=== PATIENT | male | born 1960 | race Caucasian/White ===

== ENCOUNTER 2017-09-12 19:49 | Inpatient (IN) | payer MEDICAID ==
[2017-09-13] MEDS: HYDROmorphONE 0.5 MG/0.5 ML SYG IV (00:01)
[2017-09-13] MEDS: LACTATED RINGER'S 1,000 ML IV ×2 (00:01→01:37)
[2017-09-13 00:02] LABS: ADD MAN DIFF? NO
[2017-09-13 00:04] LABS: WHITE BLOOD COUNT 13.1 10^3/ul (4.8-10.8)
[2017-09-13 00:04] LABS: BASOPHIL # 0.1 10^3/ul (0.0-0.1); BASOPHILS % 0.9 % (0.0-2.0); EOSINOPHILS % 0.1 % (0.0-7.0); HEMATOCRIT 46.1 % (42.0-52.0); HEMOGLOBIN 16.5 g/dl (14.0-18.0); LYMPHOCYTES # 2.5 10^3/ul (0.8-2.9); LYMPHOCYTES % 19.4 % (15.0-51.0); MEAN CORPUSCULAR HEMOGLOBIN 33.8 pg (29.0-33.0); MEAN CORPUSCULAR HGB CONC 35.8 g/dl (32.0-37.0); MEAN CORPUSCULAR VOLUME 94.5 fl (82.0-101.0); MEAN PLATELET VOLUME 9.8 fl (7.4-10.4); MONOCYTE # 1.2 10^3/ul (0.3-0.9); NEUTROPHIL # 9.1 10^3/ul (1.6-7.5); NUCLEATED RED BLOOD CELLS% 0.2 /100WBC (0.0-0.0); PLATELET COUNT 128 10^3/UL (140-415); RED BLOOD COUNT 4.88 10^6/ul (4.70-6.10); RED CELL DISTRIBUTION WIDTH 13.4 % (11.5-14.5)
[2017-09-13 00:26] LABS: ALANINE AMINOTRANSFERASE 54 IU/L (13-69); ALBUMIN/GLOBULIN RATIO 1.62; ALKALINE PHOSPHATASE 222 IU/L (42-121); ANION GAP 47 (8-16); ASPARTATE AMINO TRANSFERASE 71 IU/L (15-46); BILIRUBIN,INDIRECT 0.3 mg/dl (0-1.1); BILIRUBIN,TOTAL 0.3 mg/dl (0.2-1.3); BLOOD UREA NITROGEN 12 mg/dl (7-20); CALCIUM 10.3 mg/dl (8.4-10.2); CHLORIDE 93 mmol/L (97-110); CREATININE 0.71 mg/dl (0.61-1.24); POTASSIUM 4.1 mmol/L (3.5-5.1); SODIUM 143 mmol/L (135-144); TOTAL PROTEIN 9.7 g/dl (6.1-8.1)
[2017-09-13 00:29] LABS: CARBON DIOXIDE 7 mmol/L (21-31); GLUCOSE 445 mg/dl (70-220)
[2017-09-13 00:39] LABS: LIPASE 3278 U/L (23-300)
[2017-09-13 00:58] LABS: MODE ROOM AIR; MetHgb Venous 0.4 %; Sample Type Blood venous; Site VENOUS LINE; Venous COHb 0.4 %; Venous Fraction OxyHgb 85.6 %; Venous Oxygen Sat 86.3 mmHG (55.0-75.0); Venous Total Hemglobin 15.2 g/dl
[2017-09-13] MEDS: INSULIN HUMAN REGULAR 100 UNIT in SOD CHLORIDE 0.9% 99 ML IV (01:34)
[2017-09-13] MEDS: POTASSIUM CHLORIDE 40 MEQ in SOD CHLORIDE 0.9% 250 ML IV (01:36)
[2017-09-13] MEDS: INSULIN REGULAR 10 ML INJ IV (01:36)
[2017-09-13 02:17] LABS: ADD UMIC YES; UR ASCORBIC ACID NEGATIVE (NEGATIVE); UR BILIRUBIN (Dip) NEGATIVE (NEGATIVE); UR BLOOD (Dip) 2+ mg/dL (NEGATIVE); UR CLARITY SLIGHTLY CLOUDY (CLEAR); UR COLOR YELLOW (YELLOW); UR GLUCOSE (Dip) 3+ mg/dL (NEGATIVE); UR KETONES (Dip) 2+ mg/dL (NEGATIVE); UR LEUKOCYTE ESTERASE (Dip) NEGATIVE Leu/ul (NEGATIVE); UR NITRITE (Dip) NEGATIVE (NEGATIVE); UR RBC 1 /HPF (0-5); UR SPECIFIC GRAVITY (Dip) 1.026 (1.003-1.030); UR TOTAL PROTEIN (Dip) 2+ mg/dl (NEGATIVE); UR UROBILINOGEN (Dip) NEGATIVE (NEGATIVE); UR WBC 4 /HPF (0-5)
[2017-09-13 02:48] LABS: BLOOD UREA NITROGEN 13 mg/dl (7-20); CALCIUM 9.4 mg/dl (8.4-10.2); CHLORIDE 100 mmol/L (97-110); CREATININE 0.69 mg/dl (0.61-1.24); GLUCOSE 344 mg/dl (70-220); SODIUM 141 mmol/L (135-144)
[2017-09-13 02:49] LABS: LACTIC ACID 1.2 mmol/L (0.5-2.0); PHOSPHORUS 2.7 mg/dl (2.5-4.9)
[2017-09-13 02:49] LABS: MAGNESIUM 1.9 mg/dl (1.7-2.5)
[2017-09-13 03:00] LABS: ANION GAP 39 (8-16); CARBON DIOXIDE < 5 mmol/L (21-31); POTASSIUM 2.9 mmol/L (3.5-5.1)
[2017-09-13 03:41] LABS: ACETONE POSITIVE 1:1 (NEGATIVE)
[2017-09-13 06:19] LABS: ANION GAP 35 (8-16); BLOOD UREA NITROGEN 13 mg/dl (7-20); CALCIUM 8.9 mg/dl (8.4-10.2); CHLORIDE 102 mmol/L (97-110); GLUCOSE 259 mg/dl (70-220); POTASSIUM 4.7 mmol/L (3.5-5.1); SODIUM 139 mmol/L (135-144)
[2017-09-13 06:30] LABS: CARBON DIOXIDE 7 mmol/L (21-31)
[2017-09-13] MEDS: D5W-0.45 NACL + KCL 40 MEQ 1,000 ML IV ×7 (07:15→23:05)
[2017-09-13 11:14] LABS: ANION GAP 28 (8-16); BLOOD UREA NITROGEN 11 mg/dl (7-20); CALCIUM 8.8 mg/dl (8.4-10.2); CARBON DIOXIDE 13 mmol/L (21-31); CHLORIDE 103 mmol/L (97-110); GLUCOSE 215 mg/dl (70-220); POTASSIUM 3.9 mmol/L (3.5-5.1); SODIUM 140 mmol/L (135-144)
[2017-09-13] MEDS: SODIUM CHLORIDE 23.4% 77 MEQ, POTASSIUM CHLORIDE 40 MEQ in DEXTROSE 10% 1,000 ML IV (13:39)
[2017-09-13 14:01] LABS: ANION GAP 19 (8-16); BLOOD UREA NITROGEN 11 mg/dl (7-20); CALCIUM 8.7 mg/dl (8.4-10.2); CARBON DIOXIDE 17 mmol/L (21-31); CHLORIDE 104 mmol/L (97-110); GLUCOSE 154 mg/dl (70-220); POTASSIUM 3.3 mmol/L (3.5-5.1); SODIUM 137 mmol/L (135-144)
[2017-09-13] MEDS ORDERED: GLUCOSE GEL 15 GRAM TUBE PO ×2 (18:00)
[2017-09-13] MEDS ORDERED: DEXTROSE 50% 50 ML SYRINGE IV ×2 (18:00)
[2017-09-13] MEDS: INSULIN ASPART [NOVOLOG] 3 ML PEN SC ×2 (18:00→22:04)
[2017-09-13] MEDS ORDERED: GLUCOSE GEL 15 GRAM TUBE BUCCAL (18:00)
[2017-09-13] MEDS ORDERED: GLUCAGON 1 MG INJ IM (18:00)
[2017-09-13 18:15] LABS: ANION GAP 16 (8-16); BLOOD UREA NITROGEN 11 mg/dl (7-20); CALCIUM 8.5 mg/dl (8.4-10.2); CARBON DIOXIDE 19 mmol/L (21-31); CHLORIDE 105 mmol/L (97-110); CREATININE 0.46 mg/dl (0.61-1.24); GLUCOSE 189 mg/dl (70-220); POTASSIUM 3.5 mmol/L (3.5-5.1); SODIUM 136 mmol/L (135-144)
[2017-09-14] MEDS: ACCU-CHEK XX ×12 (02:26→17:18)
[2017-09-14] MEDS: D5W-0.45 NACL + KCL 40 MEQ 1,000 ML IV (03:30)
[2017-09-14 05:17] LABS: ADD MAN DIFF? NO
[2017-09-14 05:23] LABS: ABNORMAL IP MESSAGE 1; BASOPHILS % 0.3 % (0.0-2.0); EOSINOPHILS # 0.1 10^3/ul (0.0-0.5); EOSINOPHILS % 0.7 % (0.0-7.0); HEMATOCRIT 33.8 % (42.0-52.0); HEMOGLOBIN 12.4 g/dl (14.0-18.0); LYMPHOCYTES # 1.5 10^3/ul (0.8-2.9); LYMPHOCYTES % 14.1 % (15.0-51.0); MEAN CORPUSCULAR HEMOGLOBIN 34.2 pg (29.0-33.0); MEAN CORPUSCULAR HGB CONC 36.7 g/dl (32.0-37.0); MEAN CORPUSCULAR VOLUME 93.1 fl (82.0-101.0); MEAN PLATELET VOLUME 10.3 fl (7.4-10.4); MONOCYTE # 0.9 10^3/ul (0.3-0.9); NEUTROPHIL # 7.9 10^3/ul (1.6-7.5); NEUTROPHILS % 75.6 % (39.0-77.0); PLATELET COUNT 71 10^3/UL (140-415); POSITIVE DIFF @See below; RED BLOOD COUNT 3.63 10^6/ul (4.70-6.10)
[2017-09-14 05:23] LABS: WHITE BLOOD COUNT 10.5 10^3/ul (4.8-10.8)
[2017-09-14 05:45] LABS: ANION GAP 20 (8-16); BLOOD UREA NITROGEN 9 mg/dl (7-20); CALCIUM 8.5 mg/dl (8.4-10.2); CARBON DIOXIDE 18 mmol/L (21-31); CHLORIDE 101 mmol/L (97-110); CREATININE 0.51 mg/dl (0.61-1.24); MAGNESIUM 1.6 mg/dl (1.7-2.5); PHOSPHORUS 1.3 mg/dl (2.5-4.9); POTASSIUM 3.8 mmol/L (3.5-5.1); SODIUM 135 mmol/L (135-144)
[2017-09-14 06:09] LABS: GLUCOSE 441 mg/dl (70-220)
[2017-09-14] MEDS: Discontinue all previous diabetes medication and insulin orders. XX (07:00)
[2017-09-14] MEDS ORDERED: Treatment of Hypoglycemia: XX (07:00)
[2017-09-14] MEDS ORDERED: DEXTROSE 50% 50 ML SYRINGE IV ×3 (07:00→14:30)
[2017-09-14] MEDS ORDERED: LORAZEPAM 2 MG INJ IV (07:00)
[2017-09-14] MEDS ORDERED: ACCU-CHEK XX (07:30)
[2017-09-14] MEDS: SOD CHLORIDE 0.9% 1,000 ML IV ×3 (07:50→22:06)
[2017-09-14] MEDS: MAGNESIUM SULFATE 2 GM/50 ML 50 ML IVPB (07:50)
[2017-09-14] MEDS: INSULIN HUMAN REGULAR 100 UNIT in SOD CHLORIDE 0.9% 99 ML IV (08:10)
[2017-09-14] MEDS: ENOXAPARIN 40 MG/0.4 ML SYG SC (09:21)
[2017-09-14] MEDS: POTASSIUM PHOSPHATE 15 MEQ in SOD CHLORIDE 0.9% 250 ML IVPB (09:45)
[2017-09-14 10:03] LABS: AADO2 Arterial 15.9 mmHg (7.0-24.0); Allen Test ACCEPTAB; Arterial Base Excess -2.2 mmol/L (-3.0-3); Arterial Blood Gas Oxygen Sat 97.7 mmHG (95.0-98.0); Arterial COHb 0.8 % (0.0-3.0); Arterial Fraction of Oxyhgb 96.7 % (93.0-99.0); Arterial HCO3 21.3 mmol/L (22.0-26.0); Arterial MetHb 0.2 % (0.0-1.5); Arterial pCO2 33.1 mmhg (35-45); MODE ROOM AIR; Site Right Radial
[2017-09-14] MEDS: MULTIVITAMINS 10 ML, THIAMINE 100 MG, FOLIC ACID 1 MG in SOD CHLORIDE 0.9% 1,000 ML IVPB (10:45)
[2017-09-14 13:47] LABS: ANION GAP 14 (8-16); BLOOD UREA NITROGEN 7 mg/dl (7-20); CALCIUM 8.3 mg/dl (8.4-10.2); CARBON DIOXIDE 22 mmol/L (21-31); CHLORIDE 105 mmol/L (97-110); CREATININE 0.45 mg/dl (0.61-1.24); GLUCOSE 152 mg/dl (70-220); PHOSPHORUS 1.7 mg/dl (2.5-4.9); SODIUM 138 mmol/L (135-144)
[2017-09-14 13:51] LABS: POTASSIUM 2.9 mmol/L (3.5-5.1)
[2017-09-14] MEDS ORDERED: GLUCOSE GEL 15 GRAM TUBE BUCCAL (14:30)
[2017-09-14] MEDS ORDERED: GLUCOSE GEL 15 GRAM TUBE PO ×2 (14:30)
[2017-09-14] MEDS ORDERED: GLUCAGON 1 MG INJ IM (14:30)
[2017-09-14] MEDS: POTASSIUM CHLORIDE 100 ML IVPB ×2 (15:38→17:18)
[2017-09-14] MEDS: INSULIN GLARGINE [LANtus] 3 ML PEN SC ×2 (15:47→20:34)
[2017-09-14] MEDS: DEXTROSE 50% 50 ML SYRINGE IV (16:24)
[2017-09-14] MEDS: INSULIN ASPART [NOVOLOG] 3 ML PEN SC ×2 (17:35→20:36)
[2017-09-14 19:55] LABS: ANION GAP 14 (8-16); BLOOD UREA NITROGEN 6 mg/dl (7-20); CALCIUM 8.2 mg/dl (8.4-10.2); CARBON DIOXIDE 23 mmol/L (21-31); CHLORIDE 104 mmol/L (97-110); GLUCOSE 207 mg/dl (70-220); MAGNESIUM 1.8 mg/dl (1.7-2.5); PHOSPHORUS 1.8 mg/dl (2.5-4.9); POTASSIUM 3.3 mmol/L (3.5-5.1); SODIUM 138 mmol/L (135-144)
[2017-09-15] MEDS ORDERED: ACCU-CHEK XX (02:00)
[2017-09-15] MEDS: ACCU-CHEK XX (02:14)
[2017-09-15 08:32] LABS: ADD MAN DIFF? NO
[2017-09-15 08:50] LABS: WHITE BLOOD COUNT 5.6 10^3/ul (4.8-10.8)
[2017-09-15 08:50] LABS: ABNORMAL IP MESSAGE 1; BASOPHILS % 0.5 % (0.0-2.0); EOSINOPHILS # 0.1 10^3/ul (0.0-0.5); EOSINOPHILS % 1.4 % (0.0-7.0); HEMATOCRIT 35.3 % (42.0-52.0); HEMOGLOBIN 12.9 g/dl (14.0-18.0); LYMPHOCYTES # 1.6 10^3/ul (0.8-2.9); LYMPHOCYTES % 28.1 % (15.0-51.0); MEAN CORPUSCULAR HEMOGLOBIN 33.9 pg (29.0-33.0); MEAN CORPUSCULAR HGB CONC 36.5 g/dl (32.0-37.0); MEAN CORPUSCULAR VOLUME 92.7 fl (82.0-101.0); MEAN PLATELET VOLUME 10.5 fl (7.4-10.4); MONOCYTE # 0.7 10^3/ul (0.3-0.9); MONOCYTES % 12.9 % (0.0-11.0); NEUTROPHIL # 3.2 10^3/ul (1.6-7.5); NEUTROPHILS % 56.9 % (39.0-77.0); PLATELET COUNT 74 10^3/UL (140-415); POSITIVE DIFF @See below; RED BLOOD COUNT 3.81 10^6/ul (4.70-6.10); RED CELL DISTRIBUTION WIDTH 12.8 % (11.5-14.5)
[2017-09-15] MEDS: INSULIN ASPART [NOVOLOG] 3 ML PEN SC ×5 (09:08→20:21)
[2017-09-15] MEDS: ENOXAPARIN 40 MG/0.4 ML SYG SC (09:08)
[2017-09-15 09:12] LABS: ANION GAP 13 (8-16); BLOOD UREA NITROGEN 4 mg/dl (7-20); CALCIUM 7.9 mg/dl (8.4-10.2); CARBON DIOXIDE 25 mmol/L (21-31); CHLORIDE 103 mmol/L (97-110); CREATININE 0.39 mg/dl (0.61-1.24); GLUCOSE 153 mg/dl (70-220); MAGNESIUM 1.7 mg/dl (1.7-2.5); PHOSPHORUS 1.8 mg/dl (2.5-4.9); SODIUM 138 mmol/L (135-144)
[2017-09-15 09:14] LABS: POTASSIUM 2.8 mmol/L (3.5-5.1)
[2017-09-15] MEDS ORDERED: POTASSIUM CHLORIDE (SR) 20 MEQ TAB PO (10:06)
[2017-09-15] MEDS: SOD CHLORIDE 0.9% 1,000 ML IV ×2 (10:10→14:52)
[2017-09-15 10:31] LABS: ALANINE AMINOTRANSFERASE 53 IU/L (13-69); ALBUMIN 3.7 g/dl (3.3-4.9); ALBUMIN/GLOBULIN RATIO 1.27; ALKALINE PHOSPHATASE 155 IU/L (42-121); AMYLASE 98 U/L (11-123); ANION GAP 16 (8-16); ASPARTATE AMINO TRANSFERASE 101 IU/L (15-46); BLOOD UREA NITROGEN 4 mg/dl (7-20); CALCIUM 8.5 mg/dl (8.4-10.2); CARBON DIOXIDE 26 mmol/L (21-31); CHLORIDE 99 mmol/L (97-110); CREATININE 0.42 mg/dl (0.61-1.24); GLUCOSE 191 mg/dl (70-220); LIPASE 447 U/L (23-300); SODIUM 138 mmol/L (135-144); TOTAL PROTEIN 6.6 g/dl (6.1-8.1)
[2017-09-15] MEDS: POTASSIUM CHLORIDE (SR) 20 MEQ TAB PO (10:48)
[2017-09-15] MEDS: MAGNESIUM SULFATE 2 GM/50 ML 50 ML IVPB (10:48)
[2017-09-15] MEDS: MULTIVITAMINS 10 ML, THIAMINE 100 MG, FOLIC ACID 1 MG in SOD CHLORIDE 0.9% 1,000 ML IVPB (10:54)
[2017-09-15] MEDS: POTASSIUM PHOSPHATE 20 MEQ in SOD CHLORIDE 0.9% 250 ML IVPB (17:47)
[2017-09-15] MEDS ORDERED: INSULIN GLARGINE [LANtus] 3 ML PEN SC ×2 (20:00)
[2017-09-15] MEDS: INSULIN GLARGINE [LANtus] 3 ML PEN SC (20:21)
[2017-09-16] MEDS: ACCU-CHEK XX (01:42)
[2017-09-16] MEDS: SOD CHLORIDE 0.9% 1,000 ML IV ×2 (04:12→04:20)
[2017-09-16] MEDS: INSULIN ASPART [NOVOLOG] 3 ML PEN SC ×6 (09:13→18:09)
[2017-09-16] MEDS: MULTIVITAMINS 10 ML, THIAMINE 100 MG, FOLIC ACID 1 MG in SOD CHLORIDE 0.9% 1,000 ML IVPB (09:38)
[2017-09-16] MEDS: ENOXAPARIN 40 MG/0.4 ML SYG SC (09:39)
[2017-09-16 12:08] LABS: ADD MAN DIFF? NO
[2017-09-16 12:11] LABS: WHITE BLOOD COUNT 5.4 10^3/ul (4.8-10.8)
[2017-09-16 12:11] LABS: ABNORMAL IP MESSAGE 1; BASOPHILS % 0.7 % (0.0-2.0); EOSINOPHILS % 0.6 % (0.0-7.0); HEMATOCRIT 34.8 % (42.0-52.0); HEMOGLOBIN 12.7 g/dl (14.0-18.0); LYMPHOCYTES # 1.8 10^3/ul (0.8-2.9); LYMPHOCYTES % 32.8 % (15.0-51.0); MEAN CORPUSCULAR HEMOGLOBIN 33.7 pg (29.0-33.0); MEAN CORPUSCULAR HGB CONC 36.5 g/dl (32.0-37.0); MEAN CORPUSCULAR VOLUME 92.3 fl (82.0-101.0); MEAN PLATELET VOLUME 10.5 fl (7.4-10.4); MONOCYTES % 17.7 % (0.0-11.0); NEUTROPHIL # 2.6 10^3/ul (1.6-7.5); NEUTROPHILS % 47.8 % (39.0-77.0); POSITIVE DIFF @See below; RED BLOOD COUNT 3.77 10^6/ul (4.70-6.10); RED CELL DISTRIBUTION WIDTH 13.2 % (11.5-14.5)
[2017-09-16 12:29] LABS: PLATELET COUNT 98 10^3/UL (140-415)
[2017-09-16 12:46] LABS: ANION GAP 15 (8-16); BLOOD UREA NITROGEN 4 mg/dl (7-20); CALCIUM 8.4 mg/dl (8.4-10.2); CARBON DIOXIDE 27 mmol/L (21-31); CHLORIDE 99 mmol/L (97-110); GLUCOSE 129 mg/dl (70-220); MAGNESIUM 1.8 mg/dl (1.7-2.5); PHOSPHORUS 2.1 mg/dl (2.5-4.9); SODIUM 138 mmol/L (135-144)
[2017-09-16] MEDS ORDERED: metFORMIN 500 MG TAB PO (19:05)
[2017-09-16] MEDS ORDERED: INSULIN GLARGINE [LANtus] 3 ML PEN SC (20:00)
== END 2017-09-16 18:48 | disposition home health service (06) | DRG 438 ==
LOC: E/R 19:49 → MS4 09-14 23:53 → E/R 09-13 12:51 → ICU 09-13 06:45
PROVIDERS: Internal Medicine
DX: K85.20 Alcohol induced acute pancreatitis without necrosis or infection (principal); E11.10 Type 2 diabetes mellitus with ketoacidosis without coma; K86.0 Alcohol-induced chronic pancreatitis; E87.6 Hypokalemia; D69.6 Thrombocytopenia, unspecified; E87.8 Other disorders of electrolyte and fluid balance, not elsewhere classified
CPT/HCPCS: 36415; 36600; 71045; 74176; 80048; 80053; 81001; 82010; 82150; 82803; 82962; 83036; 83605; 83690; 83735; 84100; 85025; 87081; 93005; 96365; 96366; 96375; 96376; 99291-25

== ENCOUNTER 2018-01-18 11:16 | Emergency (ER) | payer MEDICAID ==
[2018-01-18] MEDS: SOD CHLORIDE 0.9% IV (11:53)
[2018-01-18 11:57] LABS: ADD MAN DIFF? NO
[2018-01-18 11:59] LABS: BASOPHILS % 0.7 % (0.0-2.0); EOSINOPHILS # 0.1 10^3/ul (0.0-0.5); HEMATOCRIT 37.9 % (42.0-52.0); HEMOGLOBIN 13.3 g/dl (14.0-18.0); LYMPHOCYTES # 1.7 10^3/ul (0.8-2.9); LYMPHOCYTES % 29.2 % (15.0-51.0); MEAN CORPUSCULAR HEMOGLOBIN 33.7 pg (29.0-33.0); MEAN CORPUSCULAR HGB CONC 35.1 g/dl (32.0-37.0); MEAN CORPUSCULAR VOLUME 95.9 fl (82.0-101.0); MEAN PLATELET VOLUME 9.9 fl (7.4-10.4); MONOCYTE # 0.4 10^3/ul (0.3-0.9); MONOCYTES % 7.1 % (0.0-11.0); NEUTROPHIL # 3.6 10^3/ul (1.6-7.5); NEUTROPHILS % 61.8 % (39.0-77.0); PLATELET COUNT 109 10^3/UL (140-415); RED BLOOD COUNT 3.95 10^6/ul (4.70-6.10); RED CELL DISTRIBUTION WIDTH 12.8 % (11.5-14.5)
[2018-01-18 11:59] LABS: WHITE BLOOD COUNT 5.8 10^3/ul (4.8-10.8)
[2018-01-18] MEDS: FAMOTIDINE 20 MG INJ IV (12:10)
[2018-01-18 12:17] LABS: ALANINE AMINOTRANSFERASE 68 IU/L (13-69); ALBUMIN 4.2 g/dl (3.3-4.9); ALBUMIN/GLOBULIN RATIO 1.44; ALKALINE PHOSPHATASE 245 IU/L (42-121); ANION GAP 18 (8-16); ASPARTATE AMINO TRANSFERASE 112 IU/L (15-46); BILIRUBIN,INDIRECT 1.3 mg/dl (0-1.1); BILIRUBIN,TOTAL 1.3 mg/dl (0.2-1.3); BLOOD UREA NITROGEN 11 mg/dl (7-20); CALCIUM 9.3 mg/dl (8.4-10.2); CARBON DIOXIDE 26 mmol/L (21-31); CHLORIDE 93 mmol/L (97-110); CREATININE 0.53 mg/dl (0.61-1.24); LIPASE 93 U/L (23-300); MAGNESIUM 1.5 mg/dl (1.7-2.5); PHOSPHORUS 3.4 mg/dl (2.5-4.9); POTASSIUM 4.4 mmol/L (3.5-5.1); SODIUM 133 mmol/L (135-144); TOTAL PROTEIN 7.1 g/dl (6.1-8.1)
[2018-01-18 12:18] LABS: GLUCOSE 465 mg/dl (70-220)
[2018-01-18 12:19] LABS: MODE ROOM AIR; MetHgb Venous 0.3 %; Sample Type Blood venous; Site VENOUS LINE; Venous COHb 0.9 %; Venous Fraction OxyHgb 77.5 %; Venous Oxygen Sat 78.4 mmHG (55.0-75.0); Venous Total Hemglobin 13.9 g/dl
[2018-01-18 12:52] LABS: ADD UMIC NO; UR ASCORBIC ACID 20 mg/dL (NEGATIVE); UR BILIRUBIN (Dip) NEGATIVE (NEGATIVE); UR BLOOD (Dip) NEGATIVE (NEGATIVE); UR CLARITY CLEAR (CLEAR); UR COLOR YELLOW (YELLOW); UR GLUCOSE (Dip) 3+ mg/dL (NEGATIVE); UR KETONES (Dip) 1+ mg/dL (NEGATIVE); UR LEUKOCYTE ESTERASE (Dip) NEGATIVE Leu/ul (NEGATIVE); UR NITRITE (Dip) NEGATIVE (NEGATIVE); UR SPECIFIC GRAVITY (Dip) 1.031 (1.003-1.030); UR TOTAL PROTEIN (Dip) NEGATIVE (NEGATIVE); UR UROBILINOGEN (Dip) NEGATIVE (NEGATIVE)
[2018-01-18] MEDS: INSULIN LISPRO 100 UNIT/ML VIAL SC (13:37)
== END 2018-01-18 13:51 | disposition home or self-care (01) ==
LOC: E/R 11:16
DX: F10.10 Alcohol abuse, uncomplicated (principal); E11.65 Type 2 diabetes mellitus with hyperglycemia; R63.4 Abnormal weight loss; Z91.14 Patient's other noncompliance with medication regimen
CPT/HCPCS: 36415; 71045; 74150; 80053; 81003; 82803; 82962; 83690; 83735; 84100; 85025; 86850; 86900; 86901; 93005; 96372; 96374; 99285-25

== ENCOUNTER 2018-06-11 22:30 | Inpatient (IN) | payer MEDICAID ==
[2018-06-11] MEDS: BELLADONNA/PHENOBARBITAL TAB PO (23:55)
[2018-06-11] MEDS: LIDOCAINE/MYLANTA 40 ML BTL PO (23:55)
[2018-06-11] MEDS: SOD CHLORIDE 0.9% 1,000 ML IV (23:55)
[2018-06-11] MEDS: FAMOTIDINE 20 MG INJ IV (23:55)
[2018-06-11] MEDS: ONDANSETRON 4 MG INJ IV (23:55)
[2018-06-11 23:59] LABS: WHITE BLOOD COUNT 3.8 10^3/ul (4.8-10.8)
[2018-06-11 23:59] LABS: ABNORMAL IP MESSAGE 1; HEMATOCRIT 37.8 % (42.0-52.0); HEMOGLOBIN 13.2 g/dl (14.0-18.0); MEAN CORPUSCULAR HEMOGLOBIN 32.6 pg (29.0-33.0); MEAN CORPUSCULAR HGB CONC 34.9 g/dl (32.0-37.0); MEAN CORPUSCULAR VOLUME 93.3 fl (82.0-101.0); MEAN PLATELET VOLUME 10.3 fl (7.4-10.4); PLATELET COUNT 54 10^3/UL (140-415); POSITIVE DIFF @See below; RED BLOOD COUNT 4.05 10^6/ul (4.70-6.10)
[2018-06-12 00:09] LABS: ADD MAN DIFF? YES
[2018-06-12 00:14] LABS: AMPHETAMINE/METHAMPHETAMINE Negative (NEGATIVE); BARBITURATES Negative (NEGATIVE); BENZODIAZEPINES Negative (NEGATIVE); CANNABINOIDS Negative (NEGATIVE); COCAINE Negative (NEGATIVE); OPIATES Negative (NEGATIVE)
[2018-06-12 00:16] LABS: ALANINE AMINOTRANSFERASE 75 IU/L (13-69); ALBUMIN 3.8 g/dl (3.3-4.9); ALBUMIN/GLOBULIN RATIO 1.46; ALKALINE PHOSPHATASE 206 IU/L (42-121); ANION GAP 16 (5-13); ASPARTATE AMINO TRANSFERASE 151 IU/L (15-46); BILIRUBIN,INDIRECT 1.2 mg/dl (0-1.1); BILIRUBIN,TOTAL 1.7 mg/dl (0.2-1.3); BLOOD UREA NITROGEN 18 mg/dl (7-20); CALCIUM 9.1 mg/dl (8.4-10.2); CARBON DIOXIDE 31 mmol/L (21-31); CHLORIDE 85 mmol/L (97-110); CREATININE 0.67 mg/dl (0.61-1.24); Estimated GFR > 60 mL/min (>60); LIPASE 227 U/L (23-300); POTASSIUM 3.7 mmol/L (3.5-5.1); SODIUM 132 mmol/L (135-144); TOTAL PROTEIN 6.4 g/dl (6.1-8.1)
[2018-06-12 00:17] LABS: GLUCOSE 517 mg/dl (70-220)
[2018-06-12 00:27] LABS: ETHANOL < 10.0 mg/dl (0-0)
[2018-06-12] MEDS: LORAZEPAM 2 MG INJ IV (00:29)
[2018-06-12 01:17] LABS: BAND NEUTROPHILS #M 1.3 10^3/ul (0.0-0.6); BAND NEUTROPHILS % (M) 35 % (0-4); BASOPHILS % (M) 1 % (0-2); ERYTHROBLAST% (NRBC) (M) 1 % (0-0); LYMPHOCYTES % (M) 28 % (15-51); METAMYELOCYTES #M 0.2 10^3/ul (0.0-0.0); METAMYELOCYTES %M 7 % (0-0); MONOCYTE #M 0.2 10^3/ul (0.3-0.9); MONOCYTES % (M) 6 % (0-11); MYELOCYTES % (M) 1 % (0-0); PLATELET ESTIMATE DECREASED; SEG NEUT #M 0.8 10^3/ul (1.6-7.5); SEGMENTED NEUTROPHILS (M) % 21 % (39-77)
[2018-06-12] MEDS: SOD CHLORIDE 0.9% 1,000 ML IV ×3 (01:36→14:25)
[2018-06-12] MEDS: INSULIN REGULAR, HUMAN 100 UNIT/1 ML 3ML VIAL SC ×2 (01:51→03:17)
[2018-06-12] MEDS ORDERED: ONDANSETRON 4 MG INJ IV ×2 (05:00→07:00)
[2018-06-12] MEDS: LEVOFLOXACIN 750MG/D5W (PMX) 150 ML IVPB (05:50)
[2018-06-12] MEDS: ACETAMINOPHEN 325 MG TAB PO ×2 (06:49→19:31)
[2018-06-12] MEDS ORDERED: GLUCAGON 1 MG INJ IM (07:00)
[2018-06-12] MEDS ORDERED: GLUCOSE GEL 15 GRAM TUBE PO ×2 (07:00)
[2018-06-12] MEDS ORDERED: NACL 0.9% 3 ML SYG IV (07:00)
[2018-06-12] MEDS ORDERED: DEXTROSE 50% 50 ML SYRINGE IV (07:00)
[2018-06-12] MEDS ORDERED: GLUCOSE GEL 15 GRAM TUBE BUCCAL (07:00)
[2018-06-12] MEDS: IOHEXOL 100 ML (07:55)
[2018-06-12] MEDS: SOD CHLORIDE 0.9% 100 ML (07:56)
[2018-06-12] MEDS: INSULIN ASPART [NOVOLOG] 3 ML PEN SC ×4 (08:00→20:46)
[2018-06-12] MEDS: LEVOFLOXACIN 500MG/D5W (PMX) 100 ML IVPB (09:00)
[2018-06-12] MEDS: FAMOTIDINE 20 MG TAB PO ×2 (11:25→20:41)
[2018-06-12] MEDS: HEPARIN 5,000 UNIT/1 ML VIAL SC (11:26)
[2018-06-12 12:01] LABS: LACTIC ACID 2.9 mmol/L (0.5-2.0)
[2018-06-12] MEDS: INSULIN DETEMIR [LEVEMIR] (100 UNITS/ML) SYG SC (13:30)
[2018-06-12 14:20] LABS: LACTIC ACID 2.3 mmol/L (0.5-2.0)
[2018-06-12] MEDS: FOLIC ACID 1 MG TAB PO (14:28)
[2018-06-12] MEDS: THIAMINE 100 MG TAB PO (14:28)
[2018-06-12] MEDS: MULTIVITAMINS THERAPEUTIC TAB PO (14:28)
[2018-06-12] MEDS ORDERED: LORAZEPAM 4 MG/ML VIAL IV (14:30)
[2018-06-12] MEDS: CEFEPIME 1GM/50 ML (PMX) 50 ML IVPB ×2 (14:31→22:38)
[2018-06-12] MEDS: PANTOPRAZOLE (EC) 40 MG TAB PO (14:57)
[2018-06-12] MEDS: METOCLOPRAMIDE 10 MG INJ IV (18:01)
[2018-06-12] MEDS ORDERED: VANCOMYCIN IV PER PHARMACY XX (20:30)
[2018-06-12] MEDS: VANCOMYCIN 1 GM (PMX) 250 ML IVPB (20:41)
[2018-06-13] MEDS: ACCU-CHEK XX (02:00)
[2018-06-13] MEDS: DEXTROSE 50% 50 ML SYRINGE IV (02:12)
[2018-06-13] MEDS: SOD CHLORIDE 0.9% 1,000 ML IV ×2 (03:14→21:02)
[2018-06-13 05:12] LABS: ABNORMAL IP MESSAGE 1; HEMATOCRIT 32.8 % (42.0-52.0); HEMOGLOBIN 11.4 g/dl (14.0-18.0); MEAN CORPUSCULAR HEMOGLOBIN 32.5 pg (29.0-33.0); MEAN CORPUSCULAR HGB CONC 34.8 g/dl (32.0-37.0); MEAN CORPUSCULAR VOLUME 93.4 fl (82.0-101.0); MEAN PLATELET VOLUME 10.4 fl (7.4-10.4); PLATELET COUNT 49 10^3/UL (140-415); POSITIVE DIFF @See below; RED BLOOD COUNT 3.51 10^6/ul (4.70-6.10)
[2018-06-13 05:12] LABS: WHITE BLOOD COUNT 1.6 10^3/ul (4.8-10.8)
[2018-06-13 05:21] LABS: ADD MAN DIFF? YES
[2018-06-13 05:35] LABS: ALANINE AMINOTRANSFERASE 58 IU/L (13-69); ALBUMIN 2.5 g/dl (3.3-4.9); ALBUMIN/GLOBULIN RATIO 0.96; ALKALINE PHOSPHATASE 125 IU/L (42-121); ANION GAP 8 (5-13); ASPARTATE AMINO TRANSFERASE 169 IU/L (15-46); BILIRUBIN,TOTAL 1.8 mg/dl (0.2-1.3); BLOOD UREA NITROGEN 12 mg/dl (7-20); CALCIUM 7.8 mg/dl (8.4-10.2); CARBON DIOXIDE 32 mmol/L (21-31); CHLORIDE 96 mmol/L (97-110); CREATININE 0.35 mg/dl (0.61-1.24); Estimated GFR > 60 mL/min (>60); GLUCOSE 83 mg/dl (70-220); SODIUM 136 mmol/L (135-144); TOTAL PROTEIN 5.1 g/dl (6.1-8.1)
[2018-06-13 05:38] LABS: HEMOGLOBIN A1C 10.6 % (0-5.9)
[2018-06-13] MEDS ORDERED: PANTOPRAZOLE (EC) 40 MG TAB PO (06:00)
[2018-06-13] MEDS: PANTOPRAZOLE (EC) 40 MG TAB PO (06:03)
[2018-06-13 06:05] LABS: POTASSIUM 2.6 mmol/L (3.5-5.1)
[2018-06-13] MEDS: POTASSIUM CHLORIDE (SR) 20 MEQ TAB PO ×2 (06:37→15:34)
[2018-06-13] MEDS: POTASSIUM CHLORIDE 100 ML IVPB ×2 (06:41→08:30)
[2018-06-13] MEDS: INSULIN ASPART [NOVOLOG] 3 ML PEN SC ×4 (07:35→21:09)
[2018-06-13 07:39] LABS: ADD UMIC YES; UR ASCORBIC ACID NEGATIVE (NEGATIVE); UR BILIRUBIN (Dip) NEGATIVE (NEGATIVE); UR BLOOD (Dip) NEGATIVE (NEGATIVE); UR CLARITY CLEAR (CLEAR); UR COLOR AMBER (YELLOW); UR GLUCOSE (Dip) NEGATIVE (NEGATIVE); UR KETONES (Dip) NEGATIVE (NEGATIVE); UR LEUKOCYTE ESTERASE (Dip) NEGATIVE Leu/ul (NEGATIVE); UR NITRITE (Dip) NEGATIVE (NEGATIVE); UR RBC 0 /HPF (0-5); UR SPECIFIC GRAVITY (Dip) 1.018 (1.003-1.030); UR TOTAL PROTEIN (Dip) 1+ mg/dl (NEGATIVE); UR UROBILINOGEN (Dip) 2+ mg/dL (NEGATIVE); UR WBC 1 /HPF (0-5)
[2018-06-13] MEDS: CEFEPIME 1GM/50 ML (PMX) 50 ML IVPB (08:31)
[2018-06-13 08:42] LABS: ANISOCYTOSIS 1+ (0-0); BAND NEUTROPHILS #M 0.7 10^3/ul (0.0-0.6); BAND NEUTROPHILS % (M) 47 % (0-4); BASOPHILS % (M) 1 % (0-2); EOSINOPHILS % (M) 4 % (0-7); LYMPHOCYTES #M 0.6 10^3/ul (0.8-2.9); LYMPHOCYTES % (M) 38 % (15-51); METAMYELOCYTES %M 1 % (0-0); MYELOCYTES % (M) 1 % (0-0); PLATELET ESTIMATE SIG DECREASED; POIKILOCYTOSIS 1+ (0-0); POLYCHROMASIA 1+ (0-0); PROMYELOCYTES % (M) 1 % (0-0); SEG NEUT #M 0.1 10^3/ul (1.6-7.5); SEGMENTED NEUTROPHILS (M) % 7 % (39-77); SMUDGE%M 15 % (0-0); TOXIC GRANULATION 2+ (0-0)
[2018-06-13] MEDS: THIAMINE 100 MG TAB PO (08:48)
[2018-06-13] MEDS: MULTIVITAMINS THERAPEUTIC TAB PO (08:48)
[2018-06-13] MEDS: FAMOTIDINE 20 MG TAB PO ×2 (08:48→21:02)
[2018-06-13] MEDS: FOLIC ACID 1 MG TAB PO (08:48)
[2018-06-13] MEDS: METOCLOPRAMIDE 10 MG INJ IV ×3 (08:48→17:36)
[2018-06-13] MEDS: LEVOFLOXACIN 500MG/D5W (PMX) 100 ML IVPB (09:16)
[2018-06-13] MEDS: VANCOMYCIN 500 MG (PMX) 100 ML IVPB ×2 (12:40→23:37)
[2018-06-13] MEDS: INSULIN DETEMIR [LEVEMIR] (100 UNITS/ML) SYG SC (12:42)
[2018-06-13 14:47] LABS: ANION GAP 12 (5-13); BLOOD UREA NITROGEN 12 mg/dl (7-20); CARBON DIOXIDE 25 mmol/L (21-31); CHLORIDE 98 mmol/L (97-110); CREATININE 0.43 mg/dl (0.61-1.24); Estimated GFR > 60 mL/min (>60); GLUCOSE 171 mg/dl (70-220); MAGNESIUM 1.4 mg/dl (1.7-2.5); SODIUM 135 mmol/L (135-144)
[2018-06-13 14:57] LABS: POTASSIUM 2.9 mmol/L (3.5-5.1)
[2018-06-13] MEDS: MEGESTROL (40 MG/ML) 10ML CUP PO ×2 (15:33→21:02)
[2018-06-13] MEDS: POTASSIUM CHLORIDE 50 ML IVPB ×2 (15:34→16:35)
[2018-06-13] MEDS: ACETAMINOPHEN 325 MG TAB PO (15:45)
[2018-06-13] MEDS: MAGNESIUM SULFATE 2 GM/50 ML 50 ML IVPB (16:34)
[2018-06-13] MEDS: AMPICILLIN/SULB 3 GM/NS (PMX) 100 ML IVPB ×2 (17:41→23:37)
[2018-06-14] MEDS: ACCU-CHEK XX (01:25)
[2018-06-14] MEDS: SOD CHLORIDE 0.9% 1,000 ML IV ×2 (03:31→16:16)
[2018-06-14] MEDS: AMPICILLIN/SULB 3 GM/NS (PMX) 100 ML IVPB ×3 (05:30→17:53)
[2018-06-14 05:47] LABS: WHITE BLOOD COUNT 7.1 10^3/ul (4.8-10.8)
[2018-06-14 05:47] LABS: ABNORMAL IP MESSAGE 1; HEMATOCRIT 32.5 % (42.0-52.0); HEMOGLOBIN 11.5 g/dl (14.0-18.0); MEAN CORPUSCULAR HEMOGLOBIN 32.6 pg (29.0-33.0); MEAN CORPUSCULAR HGB CONC 35.4 g/dl (32.0-37.0); MEAN CORPUSCULAR VOLUME 92.1 fl (82.0-101.0); MEAN PLATELET VOLUME 10.4 fl (7.4-10.4); PLATELET COUNT 53 10^3/UL (140-415); POSITIVE DIFF @See below; RED BLOOD COUNT 3.53 10^6/ul (4.70-6.10); RED CELL DISTRIBUTION WIDTH 12.9 % (11.5-14.5)
[2018-06-14 06:03] LABS: ADD MAN DIFF? YES
[2018-06-14 06:15] LABS: ALANINE AMINOTRANSFERASE 63 IU/L (13-69); ALBUMIN 2.5 g/dl (3.3-4.9); ALBUMIN/GLOBULIN RATIO 0.89; ALKALINE PHOSPHATASE 245 IU/L (42-121); ANION GAP 8 (5-13); ASPARTATE AMINO TRANSFERASE 164 IU/L (15-46); BILIRUBIN,INDIRECT 1.2 mg/dl (0-1.1); BILIRUBIN,TOTAL 2.6 mg/dl (0.2-1.3); BLOOD UREA NITROGEN 10 mg/dl (7-20); CALCIUM 8.5 mg/dl (8.4-10.2); CARBON DIOXIDE 29 mmol/L (21-31); CHLORIDE 100 mmol/L (97-110); Estimated GFR > 60 mL/min (>60); GLUCOSE 114 mg/dl (70-220); SODIUM 137 mmol/L (135-144); TOTAL PROTEIN 5.3 g/dl (6.1-8.1)
[2018-06-14 06:18] LABS: PHOSPHORUS 1.3 mg/dl (2.5-4.9)
[2018-06-14 06:18] LABS: MAGNESIUM 1.5 mg/dl (1.7-2.5)
[2018-06-14 06:35] LABS: POTASSIUM 2.9 mmol/L (3.5-5.1)
[2018-06-14] MEDS ORDERED: MAGNESIUM SULFATE 2 GM/50 ML 50 ML IVPB (07:00)
[2018-06-14 07:01] LABS: ANISOCYTOSIS 1+ (0-0); EOSINOPHILS % (M) 1 % (0-7); LYMPHOCYTES #M 1.3 10^3/ul (0.8-2.9); LYMPHOCYTES % (M) 19 % (15-51); MONOCYTE #M 0.3 10^3/ul (0.3-0.9); MONOCYTES % (M) 5 % (0-11); PLATELET ESTIMATE DECREASED; POLYCHROMASIA 2+ (0-0); SEGMENTED NEUTROPHILS (M) % 75 % (39-77); SMUDGE%M 20 % (0-0); TOXIC GRANULATION 1+ (0-0)
[2018-06-14] MEDS: POTASSIUM CHLORIDE 100 ML IVPB ×2 (07:01→09:41)
[2018-06-14] MEDS: INSULIN ASPART [NOVOLOG] 3 ML PEN SC ×4 (07:35→21:00)
[2018-06-14] MEDS: MAGNESIUM SULFATE 2 GM/50 ML 50 ML IVPB (08:12)
[2018-06-14] MEDS: THIAMINE 100 MG TAB PO (08:13)
[2018-06-14] MEDS: MULTIVITAMINS THERAPEUTIC TAB PO (08:13)
[2018-06-14] MEDS: FAMOTIDINE 20 MG TAB PO ×2 (08:13→21:39)
[2018-06-14] MEDS: POTASSIUM CHLORIDE 20 MEQ POWDER FOR ORAL SOLN PO (08:13)
[2018-06-14] MEDS: METOCLOPRAMIDE 10 MG INJ IV ×3 (08:13→17:17)
[2018-06-14] MEDS: FOLIC ACID 1 MG TAB PO (08:13)
[2018-06-14] MEDS: INSULIN DETEMIR [LEVEMIR] (100 UNITS/ML) SYG SC (08:21)
[2018-06-14] MEDS: MEGESTROL (40 MG/ML) 10ML CUP PO ×2 (08:30→21:39)
[2018-06-14] MEDS: ACETAMINOPHEN 325 MG TAB PO (08:39)
[2018-06-14] MEDS: METOPROLOL 25 MG TAB PO ×2 (11:13→21:39)
[2018-06-14] MEDS: VANCOMYCIN 500 MG (PMX) 100 ML IVPB (12:25)
[2018-06-14] MEDS: POTASSIUM PHOSPHATE 30 MM in SOD CHLORIDE 0.9% 250 ML IVPB (12:30)
[2018-06-14 20:51] LABS: AADO2 Arterial 128.8 mmHg (7.0-24.0); Allen Test ACCEPTAB; Arterial Base Excess 2.8 mmol/L (-3.0-3); Arterial Blood Gas Oxygen Sat 84.4 mmHG (95.0-98.0); Arterial COHb 0.8 % (0.0-3.0); Arterial Fraction of Oxyhgb 83.7 % (93.0-99.0); Arterial HCO3 25.8 mmol/L (22.0-26.0); Arterial MetHb 0 % (0.0-1.5); Arterial pCO2 34.5 mmhg (35-45); MODE NASAL CANNULA; Site Right Radial
[2018-06-15] MEDS: AMPICILLIN/SULB 3 GM/NS (PMX) 100 ML IVPB ×3 (01:46→12:21)
[2018-06-15] MEDS: ACCU-CHEK XX (02:00)
[2018-06-15 05:47] LABS: ABNORMAL IP MESSAGE 1; HEMATOCRIT 33.7 % (42.0-52.0); HEMOGLOBIN 11.8 g/dl (14.0-18.0); MEAN CORPUSCULAR HEMOGLOBIN 32.2 pg (29.0-33.0); MEAN CORPUSCULAR VOLUME 91.8 fl (82.0-101.0); MEAN PLATELET VOLUME 10.1 fl (7.4-10.4); PLATELET COUNT 70 10^3/UL (140-415); POSITIVE DIFF @See below; RED BLOOD COUNT 3.67 10^6/ul (4.70-6.10); RED CELL DISTRIBUTION WIDTH 12.9 % (11.5-14.5)
[2018-06-15 05:47] LABS: WHITE BLOOD COUNT 12.1 10^3/ul (4.8-10.8)
[2018-06-15 05:52] LABS: ADD MAN DIFF? YES
[2018-06-15 06:07] LABS: ANION GAP 13 (5-13); BLOOD UREA NITROGEN 13 mg/dl (7-20); CALCIUM 8.1 mg/dl (8.4-10.2); CARBON DIOXIDE 25 mmol/L (21-31); CHLORIDE 95 mmol/L (97-110); CREATININE 0.35 mg/dl (0.61-1.24); Estimated GFR > 60 mL/min (>60); GLUCOSE 167 mg/dl (70-220); SODIUM 133 mmol/L (135-144)
[2018-06-15 06:18] LABS: MAGNESIUM 1.6 mg/dl (1.7-2.5)
[2018-06-15 06:18] LABS: PHOSPHORUS 3.9 mg/dl (2.5-4.9)
[2018-06-15 07:39] LABS: ANISOCYTOSIS 1+ (0-0); BAND NEUTROPHILS #M 4.1 10^3/ul (0.0-0.6); BAND NEUTROPHILS % (M) 34 % (0-4); EOSINOPHILS % (M) 1 % (0-7); LYMPHOCYTES % (M) 9 % (15-51); MONOCYTE #M 0.2 10^3/ul (0.3-0.9); MONOCYTES % (M) 2 % (0-11); PLATELET ESTIMATE DECREASED; POLYCHROMASIA 2+ (0-0); REACTIVE LYMPHOCYTES #M 0.3 10^3/ul (0.0-0.0); REACTIVE LYMPHOCYTES% (M) 3 % (0-0); SEG NEUT #M 6.7 10^3/ul (1.6-7.5); SEGMENTED NEUTROPHILS (M) % 51 % (39-77); SMUDGE%M 2 % (0-0)
[2018-06-15] MEDS: INSULIN ASPART [NOVOLOG] 3 ML PEN SC ×4 (07:40→21:19)
[2018-06-15] MEDS: POTASSIUM CHLORIDE (SR) 20 MEQ TAB PO (07:45)
[2018-06-15] MEDS: METOCLOPRAMIDE 10 MG INJ IV ×3 (07:45→17:21)
[2018-06-15] MEDS: INSULIN DETEMIR [LEVEMIR] (100 UNITS/ML) SYG SC (07:58)
[2018-06-15] MEDS: MULTIVITAMINS THERAPEUTIC TAB PO (09:11)
[2018-06-15] MEDS: FOLIC ACID 1 MG TAB PO (09:11)
[2018-06-15] MEDS: THIAMINE 100 MG TAB PO (09:12)
[2018-06-15] MEDS: MEGESTROL (40 MG/ML) 10ML CUP PO ×2 (09:12→21:16)
[2018-06-15] MEDS: FAMOTIDINE 20 MG TAB PO (09:12)
[2018-06-15] MEDS: METOPROLOL 25 MG TAB PO ×2 (09:12→21:16)
[2018-06-15] MEDS: MAGNESIUM SULFATE 2 GM/50 ML 50 ML IVPB (09:54)
[2018-06-15] MEDS: POTASSIUM CHLORIDE 100 ML IVPB ×2 (11:13→13:26)
[2018-06-15 12:57] LABS: LACTATE DEHYDROGENASE 478 IU/L (313-618)
[2018-06-15] MEDS: PIPER-TAZO 3.375 GM IV (PMX) 100 ML IVPB ×2 (13:26→17:21)
[2018-06-15 13:31] LABS: HIV 1&2 ANTIBODY NEGATIVE (NEGATIVE)
[2018-06-15] MEDS: METHYLPREDNISOLONE 40 MG INJ IV ×2 (14:01→21:15)
[2018-06-15] MEDS: FLUCONAZOLE 100 MG/50 ML (PMX) 50 ML IVPB (14:30)
[2018-06-15] MEDS: TRIMETHOPRIM/SULFAMETHOXAZOLE 20 ML in DEXTROSE 5% 500 ML IVPB ×2 (15:45→22:52)
[2018-06-16] MEDS: PIPER-TAZO 3.375 GM IV (PMX) 100 ML IVPB ×4 (00:58→17:39)
[2018-06-16] MEDS: ACCU-CHEK XX (02:00)
[2018-06-16 05:39] LABS: ABNORMAL IP MESSAGE 1; HEMATOCRIT 31.3 % (42.0-52.0); HEMOGLOBIN 11.2 g/dl (14.0-18.0); MEAN CORPUSCULAR HEMOGLOBIN 32.6 pg (29.0-33.0); MEAN CORPUSCULAR HGB CONC 35.8 g/dl (32.0-37.0); MEAN PLATELET VOLUME 10.2 fl (7.4-10.4); PLATELET COUNT 85 10^3/UL (140-415); POSITIVE DIFF @See below; RED BLOOD COUNT 3.44 10^6/ul (4.70-6.10)
[2018-06-16 05:39] LABS: WHITE BLOOD COUNT 6.2 10^3/ul (4.8-10.8)
[2018-06-16 05:43] LABS: ADD MAN DIFF? YES
[2018-06-16] MEDS: PANTOPRAZOLE (EC) 40 MG TAB PO (05:54)
[2018-06-16] MEDS: TRIMETHOPRIM/SULFAMETHOXAZOLE 20 ML in DEXTROSE 5% 500 ML IVPB ×3 (05:54→22:50)
[2018-06-16 06:08] LABS: ANION GAP 10 (5-13); BLOOD UREA NITROGEN 16 mg/dl (7-20); CALCIUM 7.8 mg/dl (8.4-10.2); CARBON DIOXIDE 29 mmol/L (21-31); CHLORIDE 96 mmol/L (97-110); CREATININE 0.35 mg/dl (0.61-1.24); Estimated GFR > 60 mL/min (>60); GLUCOSE 292 mg/dl (70-220); SODIUM 135 mmol/L (135-144)
[2018-06-16 06:18] LABS: POTASSIUM 3.1 mmol/L (3.5-5.1)
[2018-06-16 06:48] LABS: ANISOCYTOSIS 1+ (0-0); GIANT THROMBO% (M) 1 % (0-0); LYMPHOCYTES #M 0.5 10^3/ul (0.8-2.9); LYMPHOCYTES % (M) 9 % (15-51); MONOCYTE #M 0.4 10^3/ul (0.3-0.9); MONOCYTES % (M) 7 % (0-11); PLATELET ESTIMATE DECREASED; POLYCHROMASIA 1+ (0-0); SEGMENTED NEUTROPHILS (M) % 84 % (39-77); SMUDGE%M 3 % (0-0)
[2018-06-16] MEDS: FOLIC ACID 1 MG TAB PO (08:12)
[2018-06-16] MEDS: MULTIVITAMINS THERAPEUTIC TAB PO (08:12)
[2018-06-16] MEDS: THIAMINE 100 MG TAB PO (08:12)
[2018-06-16] MEDS: METOCLOPRAMIDE 10 MG INJ IV ×3 (08:13→17:39)
[2018-06-16] MEDS: MEGESTROL (40 MG/ML) 10ML CUP PO ×2 (08:13→20:28)
[2018-06-16] MEDS: METHYLPREDNISOLONE 40 MG INJ IV ×2 (08:13→20:27)
[2018-06-16] MEDS: METOPROLOL 25 MG TAB PO ×2 (08:14→20:25)
[2018-06-16] MEDS: INSULIN ASPART [NOVOLOG] 3 ML PEN SC ×5 (08:23→22:32)
[2018-06-16] MEDS: INSULIN DETEMIR [LEVEMIR] (100 UNITS/ML) SYG SC ×2 (08:28→22:32)
[2018-06-16] MEDS ORDERED: VANCOMYCIN IV PER PHARMACY XX (11:00)
[2018-06-16] MEDS: POTASSIUM CHLORIDE (SR) 20 MEQ TAB PO (11:10)
[2018-06-16] MEDS: LEVOFLOXACIN 750MG/D5W (PMX) 150 ML IVPB (13:23)
[2018-06-16] MEDS: FLUCONAZOLE 100 MG/50 ML (PMX) 50 ML IVPB (15:10)
[2018-06-16] MEDS ORDERED: INSULIN ASPART [NOVOLOG] 3 ML PEN SC (18:30)
[2018-06-16 21:53] LABS: AADO2 Arterial 572.3 mmHg (7.0-24.0); Allen Test ACCEPTAB; Arterial Blood Gas Oxygen Sat 97.7 mmHG (95.0-98.0); Arterial COHb 0.4 % (0.0-3.0); Arterial HCO3 24.9 mmol/L (22.0-26.0); Arterial MetHb 0.3 % (0.0-1.5); Arterial pCO2 32.9 mmhg (35-45); MODE HFNC; Site Right Radial
[2018-06-17] MEDS: PIPER-TAZO 3.375 GM IV (PMX) 100 ML IVPB ×4 (00:43→17:21)
[2018-06-17] MEDS: ACCU-CHEK XX (02:35)
[2018-06-17] MEDS: PANTOPRAZOLE (EC) 40 MG TAB PO (05:17)
[2018-06-17 05:24] LABS: HEMATOCRIT 29.3 % (42.0-52.0); HEMOGLOBIN 10.4 g/dl (14.0-18.0); MEAN CORPUSCULAR HEMOGLOBIN 32.6 pg (29.0-33.0); MEAN CORPUSCULAR HGB CONC 35.5 g/dl (32.0-37.0); MEAN CORPUSCULAR VOLUME 91.8 fl (82.0-101.0); MEAN PLATELET VOLUME 10.1 fl (7.4-10.4); PLATELET COUNT 130 10^3/UL (140-415); POSITIVE DIFF @See below; RED BLOOD COUNT 3.19 10^6/ul (4.70-6.10); RED CELL DISTRIBUTION WIDTH 12.8 % (11.5-14.5)
[2018-06-17 05:45] LABS: ADD MAN DIFF? YES
[2018-06-17 05:59] LABS: ALANINE AMINOTRANSFERASE 48 IU/L (13-69); ALBUMIN 2.2 g/dl (3.3-4.9); ALBUMIN/GLOBULIN RATIO 0.91; ALKALINE PHOSPHATASE 462 IU/L (42-121); ANION GAP 10 (5-13); ASPARTATE AMINO TRANSFERASE 99 IU/L (15-46); BILIRUBIN,INDIRECT 0.7 mg/dl (0-1.1); BILIRUBIN,TOTAL 0.7 mg/dl (0.2-1.3); BLOOD UREA NITROGEN 17 mg/dl (7-20); CALCIUM 7.9 mg/dl (8.4-10.2); CARBON DIOXIDE 26 mmol/L (21-31); CHLORIDE 97 mmol/L (97-110); CREATININE 0.41 mg/dl (0.61-1.24); Estimated GFR > 60 mL/min (>60); GLUCOSE 155 mg/dl (70-220); POTASSIUM 3.6 mmol/L (3.5-5.1); SODIUM 133 mmol/L (135-144); TOTAL PROTEIN 4.6 g/dl (6.1-8.1)
[2018-06-17 06:05] LABS: PHOSPHORUS 2.9 mg/dl (2.5-4.9)
[2018-06-17] MEDS: TRIMETHOPRIM/SULFAMETHOXAZOLE 20 ML in DEXTROSE 5% 500 ML IVPB ×3 (06:50→23:33)
[2018-06-17 07:16] LABS: ANISOCYTOSIS 2+ (0-0); BAND NEUTROPHILS #M 1.1 10^3/ul (0.0-0.6); BAND NEUTROPHILS % (M) 14 % (0-4); BASOPHILS % (M) 1 % (0-2); GIANT THROMBO% (M) 1 % (0-0); LYMPHOCYTES #M 0.8 10^3/ul (0.8-2.9); LYMPHOCYTES % (M) 10 % (15-51); MONOCYTE #M 0.4 10^3/ul (0.3-0.9); MONOCYTES % (M) 6 % (0-11); PLATELET ESTIMATE DECREASED; POLYCHROMASIA 1+ (0-0); REACTIVE LYMPHOCYTES% (M) 1 % (0-0); SEG NEUT #M 5.5 10^3/ul (1.6-7.5); SEGMENTED NEUTROPHILS (M) % 68 % (39-77); SMUDGE%M 36 % (0-0); TARGET CELLS 1+ (0-0); TOXIC GRANULATION 1+ (0-0)
[2018-06-17] MEDS: INSULIN ASPART [NOVOLOG] 3 ML PEN SC ×7 (08:13→20:55)
[2018-06-17] MEDS: METOPROLOL 25 MG TAB PO ×2 (09:00→20:48)
[2018-06-17] MEDS: INSULIN DETEMIR [LEVEMIR] (100 UNITS/ML) SYG SC ×2 (09:06→20:56)
[2018-06-17] MEDS: MEGESTROL (40 MG/ML) 10ML CUP PO ×2 (09:10→20:47)
[2018-06-17] MEDS: MULTIVITAMINS THERAPEUTIC TAB PO (09:11)
[2018-06-17] MEDS: METOCLOPRAMIDE 10 MG INJ IV ×3 (09:11→17:21)
[2018-06-17] MEDS: THIAMINE 100 MG TAB PO (09:11)
[2018-06-17] MEDS: FOLIC ACID 1 MG TAB PO (09:11)
[2018-06-17] MEDS: METHYLPREDNISOLONE 40 MG INJ IV ×2 (09:11→20:47)
[2018-06-17] MEDS: LEVOFLOXACIN 750MG/D5W (PMX) 150 ML IVPB (12:22)
[2018-06-17] MEDS: FLUCONAZOLE 100 MG/50 ML (PMX) 50 ML IVPB (14:59)
[2018-06-17] MEDS ORDERED: ZOLPIDEM 5 MG TAB PO (21:00)
[2018-06-18] MEDS: PIPER-TAZO 3.375 GM IV (PMX) 100 ML IVPB ×4 (00:38→17:37)
[2018-06-18] MEDS: ACCU-CHEK XX (01:24)
[2018-06-18 05:29] LABS: WHITE BLOOD COUNT 7.3 10^3/ul (4.8-10.8)
[2018-06-18 05:29] LABS: HEMATOCRIT 27.8 % (42.0-52.0); HEMOGLOBIN 9.8 g/dl (14.0-18.0); MEAN CORPUSCULAR HEMOGLOBIN 32.5 pg (29.0-33.0); MEAN CORPUSCULAR HGB CONC 35.3 g/dl (32.0-37.0); MEAN CORPUSCULAR VOLUME 92.1 fl (82.0-101.0); MEAN PLATELET VOLUME 9.9 fl (7.4-10.4); PLATELET COUNT 162 10^3/UL (140-415); POSITIVE DIFF @See below; RED BLOOD COUNT 3.02 10^6/ul (4.70-6.10)
[2018-06-18 05:35] LABS: ADD MAN DIFF? YES
[2018-06-18 06:02] LABS: PHOSPHORUS 3.6 mg/dl (2.5-4.9)
[2018-06-18 06:02] LABS: MAGNESIUM 1.9 mg/dl (1.7-2.5)
[2018-06-18 06:38] LABS: ALANINE AMINOTRANSFERASE 47 IU/L (13-69); ALBUMIN 2.2 g/dl (3.3-4.9); ALBUMIN/GLOBULIN RATIO 0.84; ALKALINE PHOSPHATASE 376 IU/L (42-121); ANION GAP 11 (5-13); ASPARTATE AMINO TRANSFERASE 69 IU/L (15-46); BILIRUBIN,INDIRECT 0.6 mg/dl (0-1.1); BILIRUBIN,TOTAL 0.6 mg/dl (0.2-1.3); BLOOD UREA NITROGEN 15 mg/dl (7-20); CALCIUM 8.2 mg/dl (8.4-10.2); CARBON DIOXIDE 27 mmol/L (21-31); CHLORIDE 99 mmol/L (97-110); CREATININE 0.42 mg/dl (0.61-1.24); Estimated GFR > 60 mL/min (>60); GLUCOSE 220 mg/dl (70-220); POTASSIUM 3.6 mmol/L (3.5-5.1); SODIUM 137 mmol/L (135-144); TOTAL PROTEIN 4.8 g/dl (6.1-8.1)
[2018-06-18] MEDS: TRIMETHOPRIM/SULFAMETHOXAZOLE 20 ML in DEXTROSE 5% 500 ML IVPB ×3 (06:57→22:51)
[2018-06-18] MEDS: PANTOPRAZOLE (EC) 40 MG TAB PO (06:57)
[2018-06-18 07:29] LABS: ANISOCYTOSIS 1+ (0-0); ERYTHROBLAST% (NRBC) (M) 1 % (0-0); GIANT THROMBO% (M) 2 % (0-0); LYMPHOCYTES #M 0.2 10^3/ul (0.8-2.9); LYMPHOCYTES % (M) 4 % (15-51); MONOCYTE #M 0.2 10^3/ul (0.3-0.9); MONOCYTES % (M) 3 % (0-11); PLATELET ESTIMATE NORMAL; POLYCHROMASIA 1+ (0-0); REACTIVE LYMPHOCYTES #M 0.2 10^3/ul (0.0-0.0); REACTIVE LYMPHOCYTES% (M) 3 % (0-0); SEGMENTED NEUTROPHILS (M) % 90 % (39-77); SMUDGE%M 5 % (0-0); TARGET CELLS 1+ (0-0)
[2018-06-18] MEDS: METOCLOPRAMIDE 10 MG INJ IV ×3 (08:20→17:37)
[2018-06-18] MEDS: MULTIVITAMINS THERAPEUTIC TAB PO (08:20)
[2018-06-18] MEDS: FOLIC ACID 1 MG TAB PO (08:20)
[2018-06-18] MEDS: MEGESTROL (40 MG/ML) 10ML CUP PO ×2 (08:20→20:17)
[2018-06-18] MEDS: METHYLPREDNISOLONE 40 MG INJ IV ×2 (08:20→20:17)
[2018-06-18] MEDS: THIAMINE 100 MG TAB PO (08:21)
[2018-06-18] MEDS: INSULIN DETEMIR [LEVEMIR] (100 UNITS/ML) SYG SC ×2 (08:24→20:59)
[2018-06-18] MEDS: INSULIN ASPART [NOVOLOG] 3 ML PEN SC ×7 (08:25→20:59)
[2018-06-18] MEDS: METOPROLOL 25 MG TAB PO ×2 (09:00→20:18)
[2018-06-18] MEDS: LEVOFLOXACIN 750MG/D5W (PMX) 150 ML IVPB (13:36)
[2018-06-18] MEDS: FLUCONAZOLE 100 MG/50 ML (PMX) 50 ML IVPB (14:38)
[2018-06-18 21:28] LABS: PNEUM JIROVECCI SRC SPUTUM; PNEUMOCYSTIS JIROVECCI DFA NOT DETECTED
[2018-06-19] MEDS: PIPER-TAZO 3.375 GM IV (PMX) 100 ML IVPB ×5 (00:21→23:27)
[2018-06-19] MEDS: ACCU-CHEK XX (01:46)
[2018-06-19] MEDS: PANTOPRAZOLE (EC) 40 MG TAB PO (05:47)
[2018-06-19 06:16] LABS: WHITE BLOOD COUNT 8.9 10^3/ul (4.8-10.8)
[2018-06-19 06:16] LABS: HEMATOCRIT 27.8 % (42.0-52.0); HEMOGLOBIN 9.8 g/dl (14.0-18.0); MEAN CORPUSCULAR HEMOGLOBIN 32.1 pg (29.0-33.0); MEAN CORPUSCULAR HGB CONC 35.3 g/dl (32.0-37.0); MEAN CORPUSCULAR VOLUME 91.1 fl (82.0-101.0); MEAN PLATELET VOLUME 9.9 fl (7.4-10.4); PLATELET COUNT 214 10^3/UL (140-415); POSITIVE DIFF @See below; RED BLOOD COUNT 3.05 10^6/ul (4.70-6.10)
[2018-06-19 06:25] LABS: ADD MAN DIFF? YES
[2018-06-19] MEDS: TRIMETHOPRIM/SULFAMETHOXAZOLE 20 ML in DEXTROSE 5% 500 ML IVPB ×3 (06:49→22:03)
[2018-06-19 06:56] LABS: ANION GAP 9 (5-13); BLOOD UREA NITROGEN 16 mg/dl (7-20); CALCIUM 8.4 mg/dl (8.4-10.2); CARBON DIOXIDE 26 mmol/L (21-31); CHLORIDE 99 mmol/L (97-110); CREATININE 0.45 mg/dl (0.61-1.24); Estimated GFR > 60 mL/min (>60); GLUCOSE 232 mg/dl (70-220); MAGNESIUM 1.9 mg/dl (1.7-2.5); PHOSPHORUS 4.2 mg/dl (2.5-4.9); POTASSIUM 3.9 mmol/L (3.5-5.1); SODIUM 134 mmol/L (135-144)
[2018-06-19] MEDS: INSULIN ASPART [NOVOLOG] 3 ML PEN SC ×7 (07:56→21:04)
[2018-06-19] MEDS: FOLIC ACID 1 MG TAB PO (08:06)
[2018-06-19] MEDS: THIAMINE 100 MG TAB PO (08:06)
[2018-06-19] MEDS: METHYLPREDNISOLONE 40 MG INJ IV ×2 (08:06→20:51)
[2018-06-19] MEDS: METOCLOPRAMIDE 10 MG INJ IV ×3 (08:06→17:34)
[2018-06-19] MEDS: MULTIVITAMINS THERAPEUTIC TAB PO (08:06)
[2018-06-19] MEDS: MEGESTROL (40 MG/ML) 10ML CUP PO ×2 (08:06→20:51)
[2018-06-19] MEDS: INSULIN DETEMIR [LEVEMIR] (100 UNITS/ML) SYG SC ×2 (08:10→21:05)
[2018-06-19 08:25] LABS: ANISOCYTOSIS 1+ (0-0); BASOPHILS % (M) 1 % (0-2); LYMPHOCYTES #M 0.7 10^3/ul (0.8-2.9); LYMPHOCYTES % (M) 8 % (15-51); MONOCYTE #M 0.3 10^3/ul (0.3-0.9); MONOCYTES % (M) 4 % (0-11); PLASMA CELLS #M 0.1 10^3/ul (0.0-0.0); PLASMAC%(M) 2 % (0); PLATELET ESTIMATE NORMAL; POLYCHROMASIA 1+ (0-0); REACTIVE LYMPHOCYTES #M 0.1 10^3/ul (0.0-0.0); REACTIVE LYMPHOCYTES% (M) 2 % (0-0); SEGMENTED NEUTROPHILS (M) % 84 % (39-77); SMUDGE%M 38 % (0-0); TARGET CELLS 1+ (0-0)
[2018-06-19] MEDS: METOPROLOL 25 MG TAB PO ×2 (08:51→20:51)
[2018-06-19 10:47] LABS: AADO2 Arterial 437.3 mmHg (7.0-24.0); Allen Test ACCEPTAB; Arterial Base Excess -1.9 mmol/L (-3.0-3); Arterial Blood Gas Oxygen Sat 96.5 mmHG (95.0-98.0); Arterial COHb 0.6 % (0.0-3.0); Arterial Fraction of Oxyhgb 95.6 % (93.0-99.0); Arterial HCO3 20.7 mmol/L (22.0-26.0); Arterial MetHb 0.3 % (0.0-1.5); Arterial pCO2 28.3 mmhg (35-45); MODE HFNC; Site Right Radial
[2018-06-19] MEDS: LEVOFLOXACIN 750MG/D5W (PMX) 150 ML IVPB (12:05)
[2018-06-19] MEDS: FLUCONAZOLE 100 MG/50 ML (PMX) 50 ML IVPB (14:04)
[2018-06-20] MEDS: ACCU-CHEK XX (01:49)
[2018-06-20] MEDS: PANTOPRAZOLE (EC) 40 MG TAB PO (05:54)
[2018-06-20] MEDS: PIPER-TAZO 3.375 GM IV (PMX) 100 ML IVPB ×3 (05:54→17:50)
[2018-06-20] MEDS: TRIMETHOPRIM/SULFAMETHOXAZOLE 20 ML in DEXTROSE 5% 500 ML IVPB ×3 (06:38→22:26)
[2018-06-20] MEDS: INSULIN ASPART [NOVOLOG] 3 ML PEN SC ×8 (08:18→21:25)
[2018-06-20] MEDS: METOPROLOL 25 MG TAB PO ×2 (09:00→21:00)
[2018-06-20] MEDS: FOLIC ACID 1 MG TAB PO (09:34)
[2018-06-20] MEDS: MULTIVITAMINS THERAPEUTIC TAB PO (09:34)
[2018-06-20] MEDS: THIAMINE 100 MG TAB PO (09:34)
[2018-06-20] MEDS: MEGESTROL (40 MG/ML) 10ML CUP PO ×2 (09:34→21:03)
[2018-06-20] MEDS: METHYLPREDNISOLONE 40 MG INJ IV ×2 (09:35→21:03)
[2018-06-20] MEDS: METOCLOPRAMIDE 10 MG INJ IV ×3 (09:35→17:50)
[2018-06-20] MEDS: INSULIN DETEMIR [LEVEMIR] (100 UNITS/ML) SYG SC ×2 (09:51→21:25)
[2018-06-20] MEDS: LEVOFLOXACIN 750MG/D5W (PMX) 150 ML IVPB (12:26)
[2018-06-20] MEDS: FLUCONAZOLE 100 MG/50 ML (PMX) 50 ML IVPB (14:55)
[2018-06-20 20:02] LABS: GLUCOSE 597 mg/dl (70-220)
[2018-06-20 23:01] LABS: GLUCOSE 465 mg/dl (70-220)
[2018-06-21] MEDS: PIPER-TAZO 3.375 GM IV (PMX) 100 ML IVPB ×4 (00:14→17:25)
[2018-06-21] MEDS: INSULIN ASPART [NOVOLOG] 3 ML PEN SC ×9 (00:15→20:43)
[2018-06-21] MEDS: INSULIN GLARGINE [LANTus] (100 UNITS/ML) SYG SC (00:16)
[2018-06-21 01:43] LABS: GLUCOSE 321 mg/dl (70-220)
[2018-06-21] MEDS: ACCU-CHEK XX (02:29)
[2018-06-21] MEDS: TRIMETHOPRIM/SULFAMETHOXAZOLE 20 ML in DEXTROSE 5% 500 ML IVPB ×3 (05:20→20:44)
[2018-06-21] MEDS: PANTOPRAZOLE (EC) 40 MG TAB PO (05:20)
[2018-06-21] MEDS: METOCLOPRAMIDE 10 MG INJ IV ×3 (07:50→17:24)
[2018-06-21] MEDS: FOLIC ACID 1 MG TAB PO (08:26)
[2018-06-21] MEDS: MULTIVITAMINS THERAPEUTIC TAB PO (08:26)
[2018-06-21] MEDS: METOPROLOL 25 MG TAB PO ×2 (08:27→20:43)
[2018-06-21] MEDS: MEGESTROL (40 MG/ML) 10ML CUP PO ×2 (08:27→20:24)
[2018-06-21] MEDS: THIAMINE 100 MG TAB PO (08:27)
[2018-06-21] MEDS: INSULIN DETEMIR [LEVEMIR] (100 UNITS/ML) SYG SC ×2 (08:31→20:42)
[2018-06-21] MEDS: METHYLPREDNISOLONE 40 MG INJ IV (08:50)
[2018-06-21] MEDS: LEVOFLOXACIN 750MG/D5W (PMX) 150 ML IVPB (11:52)
[2018-06-21] MEDS: FLUCONAZOLE 100 MG/50 ML (PMX) 50 ML IVPB (14:00)
[2018-06-22] MEDS: ACCU-CHEK XX (02:00)
[2018-06-22 05:27] LABS: ADD MAN DIFF? NO
[2018-06-22 05:33] LABS: BASOPHILS % 0.2 % (0.0-2.0); EOSINOPHILS # 0.1 10^3/ul (0.0-0.5); HEMATOCRIT 26.3 % (42.0-52.0); HEMOGLOBIN 9.1 g/dl (14.0-18.0); LYMPHOCYTES # 2.1 10^3/ul (0.8-2.9); LYMPHOCYTES % 23.3 % (15.0-51.0); MEAN CORPUSCULAR HEMOGLOBIN 32.7 pg (29.0-33.0); MEAN CORPUSCULAR HGB CONC 34.6 g/dl (32.0-37.0); MEAN CORPUSCULAR VOLUME 94.6 fl (82.0-101.0); MEAN PLATELET VOLUME 9.6 fl (7.4-10.4); MONOCYTE # 0.6 10^3/ul (0.3-0.9); MONOCYTES % 6.2 % (0.0-11.0); NEUTROPHILS % 66.5 % (39.0-77.0); PLATELET COUNT 323 10^3/UL (140-415); RED BLOOD COUNT 2.78 10^6/ul (4.70-6.10); RED CELL DISTRIBUTION WIDTH 13.2 % (11.5-14.5)
[2018-06-22 06:00] LABS: MAGNESIUM 1.7 mg/dl (1.7-2.5)
[2018-06-22 06:00] LABS: PHOSPHORUS 3.6 mg/dl (2.5-4.9)
[2018-06-22 06:09] LABS: ALANINE AMINOTRANSFERASE 38 IU/L (13-69); ALBUMIN 2.3 g/dl (3.3-4.9); ALBUMIN/GLOBULIN RATIO 0.79; ALKALINE PHOSPHATASE 314 IU/L (42-121); ANION GAP 8 (5-13); ASPARTATE AMINO TRANSFERASE 35 IU/L (15-46); BILIRUBIN,INDIRECT 0.5 mg/dl (0-1.1); BILIRUBIN,TOTAL 0.5 mg/dl (0.2-1.3); BLOOD UREA NITROGEN 22 mg/dl (7-20); CALCIUM 8.3 mg/dl (8.4-10.2); CARBON DIOXIDE 23 mmol/L (21-31); CHLORIDE 101 mmol/L (97-110); CREATININE 0.59 mg/dl (0.61-1.24); Estimated GFR > 60 mL/min (>60); GLUCOSE 270 mg/dl (70-220); POTASSIUM 4.2 mmol/L (3.5-5.1); SODIUM 132 mmol/L (135-144); TOTAL PROTEIN 5.2 g/dl (6.1-8.1)
[2018-06-22] MEDS: TRIMETHOPRIM/SULFAMETHOXAZOLE 20 ML in DEXTROSE 5% 500 ML IVPB ×2 (06:26→13:51)
[2018-06-22] MEDS: PANTOPRAZOLE (EC) 40 MG TAB PO (06:26)
[2018-06-22] MEDS: PIPER-TAZO 3.375 GM IV (PMX) 100 ML IVPB ×4 (06:26→17:20)
[2018-06-22 06:29] LABS: ALPHA FETOPROTEIN 1.92 IU/L (0.00-7.21)
[2018-06-22] MEDS: INSULIN ASPART [NOVOLOG] 3 ML PEN SC ×8 (07:40→22:38)
[2018-06-22] MEDS: METOCLOPRAMIDE 10 MG INJ IV ×3 (07:49→17:19)
[2018-06-22] MEDS: THIAMINE 100 MG TAB PO (08:33)
[2018-06-22] MEDS: MEGESTROL (40 MG/ML) 10ML CUP PO ×2 (08:33→21:39)
[2018-06-22] MEDS: METOPROLOL 25 MG TAB PO ×2 (08:33→21:38)
[2018-06-22] MEDS: MULTIVITAMINS THERAPEUTIC TAB PO (08:34)
[2018-06-22] MEDS: FOLIC ACID 1 MG TAB PO (08:34)
[2018-06-22] MEDS: METHYLPREDNISOLONE 40 MG INJ IV (08:36)
[2018-06-22] MEDS: INSULIN DETEMIR [LEVEMIR] (100 UNITS/ML) SYG SC ×2 (11:44→21:53)
[2018-06-22] MEDS: LEVOFLOXACIN 750MG/D5W (PMX) 150 ML IVPB (12:19)
[2018-06-22] MEDS: FLUCONAZOLE 100 MG/50 ML (PMX) 50 ML IVPB (13:51)
[2018-06-22 22:48] LABS: GLUCOSE 447 mg/dl (70-220)
[2018-06-23] MEDS: TRIMETHOPRIM/SULFAMETHOXAZOLE 20 ML in DEXTROSE 5% 500 ML IVPB ×4 (00:25→22:00)
[2018-06-23] MEDS: PIPER-TAZO 3.375 GM IV (PMX) 100 ML IVPB ×5 (00:47→23:29)
[2018-06-23] MEDS: ACCU-CHEK XX (02:00)
[2018-06-23] MEDS: INSULIN ASPART [NOVOLOG] 3 ML PEN SC ×8 (04:04→21:03)
[2018-06-23] MEDS: PANTOPRAZOLE (EC) 40 MG TAB PO (05:46)
[2018-06-23] MEDS: METOCLOPRAMIDE 10 MG INJ IV ×2 (07:44→11:46)
[2018-06-23] MEDS: INSULIN DETEMIR [LEVEMIR] (100 UNITS/ML) SYG SC ×2 (07:55→21:03)
[2018-06-23] MEDS: MEGESTROL (40 MG/ML) 10ML CUP PO ×2 (08:40→20:11)
[2018-06-23] MEDS: FOLIC ACID 1 MG TAB PO (08:41)
[2018-06-23] MEDS: THIAMINE 100 MG TAB PO (08:41)
[2018-06-23] MEDS: MULTIVITAMINS THERAPEUTIC TAB PO (08:41)
[2018-06-23] MEDS: METOPROLOL 25 MG TAB PO ×2 (08:42→20:12)
[2018-06-23] MEDS: METHYLPREDNISOLONE 40 MG INJ IV (08:45)
[2018-06-23] MEDS: LEVOFLOXACIN 750MG/D5W (PMX) 150 ML IVPB (11:46)
[2018-06-23] MEDS: FLUCONAZOLE 100 MG/50 ML (PMX) 50 ML IVPB (14:28)
[2018-06-24] MEDS: ACCU-CHEK XX (02:00)
[2018-06-24] MEDS: PIPER-TAZO 3.375 GM IV (PMX) 100 ML IVPB ×2 (05:29→12:00)
[2018-06-24] MEDS: LEVOFLOXACIN 750 MG TABLET PO (05:29)
[2018-06-24] MEDS: PANTOPRAZOLE (EC) 40 MG TAB PO (05:29)
[2018-06-24 05:38] LABS: ADD MAN DIFF? NO
[2018-06-24 05:46] LABS: BASOPHILS % 0.2 % (0.0-2.0); EOSINOPHILS # 0.1 10^3/ul (0.0-0.5); EOSINOPHILS % 0.6 % (0.0-7.0); HEMATOCRIT 24.9 % (42.0-52.0); HEMOGLOBIN 8.8 g/dl (14.0-18.0); LYMPHOCYTES # 2.3 10^3/ul (0.8-2.9); LYMPHOCYTES % 27.1 % (15.0-51.0); MEAN CORPUSCULAR HEMOGLOBIN 33.3 pg (29.0-33.0); MEAN CORPUSCULAR HGB CONC 35.3 g/dl (32.0-37.0); MEAN CORPUSCULAR VOLUME 94.3 fl (82.0-101.0); MEAN PLATELET VOLUME 9.2 fl (7.4-10.4); MONOCYTE # 0.7 10^3/ul (0.3-0.9); MONOCYTES % 7.7 % (0.0-11.0); NEUTROPHIL # 5.2 10^3/ul (1.6-7.5); NEUTROPHILS % 60.2 % (39.0-77.0); PLATELET COUNT 333 10^3/UL (140-415); RED BLOOD COUNT 2.64 10^6/ul (4.70-6.10); RED CELL DISTRIBUTION WIDTH 13.7 % (11.5-14.5)
[2018-06-24 05:46] LABS: WHITE BLOOD COUNT 8.6 10^3/ul (4.8-10.8)
[2018-06-24 06:04] LABS: ALANINE AMINOTRANSFERASE 37 IU/L (13-69); ALBUMIN 2.5 g/dl (3.3-4.9); ALBUMIN/GLOBULIN RATIO 0.83; ALKALINE PHOSPHATASE 264 IU/L (42-121); ANION GAP 7 (5-13); ASPARTATE AMINO TRANSFERASE 32 IU/L (15-46); BILIRUBIN,INDIRECT 0.3 mg/dl (0-1.1); BILIRUBIN,TOTAL 0.3 mg/dl (0.2-1.3); BLOOD UREA NITROGEN 20 mg/dl (7-20); CALCIUM 8.5 mg/dl (8.4-10.2); CARBON DIOXIDE 24 mmol/L (21-31); CHLORIDE 101 mmol/L (97-110); CREATININE 0.46 mg/dl (0.61-1.24); Estimated GFR > 60 mL/min (>60); GLUCOSE 247 mg/dl (70-220); POTASSIUM 3.7 mmol/L (3.5-5.1); SODIUM 132 mmol/L (135-144); TOTAL PROTEIN 5.5 g/dl (6.1-8.1)
[2018-06-24 06:07] LABS: PHOSPHORUS 3.6 mg/dl (2.5-4.9)
[2018-06-24 06:07] LABS: MAGNESIUM 1.6 mg/dl (1.7-2.5)
[2018-06-24] MEDS: TRIMETHOPRIM/SULFAMETHOXAZOLE 20 ML in DEXTROSE 5% 500 ML IVPB ×2 (06:54→13:31)
[2018-06-24] MEDS: INSULIN ASPART [NOVOLOG] 3 ML PEN SC ×7 (08:00→21:00)
[2018-06-24] MEDS: MEGESTROL (40 MG/ML) 10ML CUP PO ×2 (08:17→21:18)
[2018-06-24] MEDS: METOPROLOL 25 MG TAB PO (08:18)
[2018-06-24] MEDS: THIAMINE 100 MG TAB PO (08:18)
[2018-06-24] MEDS: FLUCONAZOLE 100 MG TAB PO (08:18)
[2018-06-24] MEDS: MULTIVITAMINS THERAPEUTIC TAB PO (08:18)
[2018-06-24] MEDS: FOLIC ACID 1 MG TAB PO (08:18)
[2018-06-24] MEDS: INSULIN DETEMIR [LEVEMIR] (100 UNITS/ML) SYG SC ×2 (08:31→22:07)
[2018-06-24] MEDS: CEFTRIAXONE 1 GM/50 ML (PMX) 50 ML IVPB (17:46)
[2018-06-24] MEDS: TRIMETHOPRIM/SULFAMETHOX (DS) TAB PO (21:18)
[2018-06-25] MEDS: ACCU-CHEK XX (02:00)
[2018-06-25] MEDS: LEVOFLOXACIN 750 MG TABLET PO (05:19)
[2018-06-25] MEDS: PANTOPRAZOLE (EC) 40 MG TAB PO (05:19)
[2018-06-25 05:58] LABS: ABNORMAL IP MESSAGE 1; HEMATOCRIT 29.3 % (42.0-52.0); MEAN CORPUSCULAR HEMOGLOBIN 33.8 pg (29.0-33.0); MEAN CORPUSCULAR HGB CONC 34.1 g/dl (32.0-37.0); MEAN PLATELET VOLUME 9.1 fl (7.4-10.4); PLATELET COUNT 463 10^3/UL (140-415); POSITIVE DIFF @See below; RED BLOOD COUNT 2.96 10^6/ul (4.70-6.10); RED CELL DISTRIBUTION WIDTH 15.2 % (11.5-14.5)
[2018-06-25 05:58] LABS: WHITE BLOOD COUNT 13.5 10^3/ul (4.8-10.8)
[2018-06-25 06:03] LABS: ADD MAN DIFF? YES
[2018-06-25 06:23] LABS: ALANINE AMINOTRANSFERASE 37 IU/L (13-69); ALBUMIN 2.9 g/dl (3.3-4.9); ALKALINE PHOSPHATASE 271 IU/L (42-121); ANION GAP 10 (5-13); ASPARTATE AMINO TRANSFERASE 49 IU/L (15-46); BILIRUBIN,INDIRECT 0.3 mg/dl (0-1.1); BILIRUBIN,TOTAL 0.3 mg/dl (0.2-1.3); BLOOD UREA NITROGEN 20 mg/dl (7-20); CARBON DIOXIDE 26 mmol/L (21-31); CHLORIDE 102 mmol/L (97-110); CREATININE 0.57 mg/dl (0.61-1.24); Estimated GFR > 60 mL/min (>60); GLUCOSE 80 mg/dl (70-220); POTASSIUM 3.8 mmol/L (3.5-5.1); SODIUM 138 mmol/L (135-144); TOTAL PROTEIN 6.1 g/dl (6.1-8.1)
[2018-06-25 06:24] LABS: MAGNESIUM 1.7 mg/dl (1.7-2.5)
[2018-06-25 06:24] LABS: PHOSPHORUS 4.8 mg/dl (2.5-4.9)
[2018-06-25] MEDS: INSULIN ASPART [NOVOLOG] 3 ML PEN SC ×7 (08:00→21:18)
[2018-06-25 08:08] LABS: ANISOCYTOSIS 1+ (0-0); BAND NEUTROPHILS #M 0.1 10^3/ul (0.0-0.6); BAND NEUTROPHILS % (M) 1 % (0-4); GIANT THROMBO% (M) 5 % (0-0); HYPOCHROMASIA 1+ (0-0); LYMPHOCYTES #M 2.9 10^3/ul (0.8-2.9); LYMPHOCYTES % (M) 22 % (15-51); MICROCYTOSIS 1+ (0-0); MONOCYTE #M 1.6 10^3/ul (0.3-0.9); MONOCYTES % (M) 12 % (0-11); MYELOCYTES #M 0.1 10^3/ul (0.0-0.0); MYELOCYTES % (M) 1 % (0-0); PLATELET ESTIMATE NORMAL; POIKILOCYTOSIS 1+ (0-0); POLYCHROMASIA 1+ (0-0); PROMYELOCYTES #M 0.2 10^3/ul (0-0); PROMYELOCYTES % (M) 2 % (0-0); REACTIVE LYMPHOCYTES% (M) 8 % (0-0); SEG NEUT #M 7.3 10^3/ul (1.6-7.5); SEGMENTED NEUTROPHILS (M) % 54 % (39-77); SMUDGE%M 5 % (0-0)
[2018-06-25] MEDS: THIAMINE 100 MG TAB PO (08:50)
[2018-06-25] MEDS: INSULIN DETEMIR [LEVEMIR] (100 UNITS/ML) SYG SC ×2 (08:52→21:19)
[2018-06-25] MEDS: MEGESTROL (40 MG/ML) 10ML CUP PO (08:53)
[2018-06-25] MEDS: FOLIC ACID 1 MG TAB PO (08:53)
[2018-06-25] MEDS: MULTIVITAMINS THERAPEUTIC TAB PO (08:53)
[2018-06-25] MEDS: TRIMETHOPRIM/SULFAMETHOX (DS) TAB PO ×2 (08:53→21:19)
[2018-06-25] MEDS: FLUCONAZOLE 100 MG TAB PO (08:53)
[2018-06-25] MEDS: CEFTRIAXONE 1 GM/50 ML (PMX) 50 ML IVPB (16:09)
[2018-06-25] MEDS ORDERED: INSULIN ASPART [NOVOLOG] 3 ML PEN SC (17:35)
[2018-06-26] MEDS: ACCU-CHEK XX (02:16)
[2018-06-26] MEDS: PANTOPRAZOLE (EC) 40 MG TAB PO (05:34)
[2018-06-26] MEDS: LEVOFLOXACIN 750 MG TABLET PO (05:35)
[2018-06-26 06:10] LABS: ADD MAN DIFF? NO
[2018-06-26 06:25] LABS: BASOPHILS % 0.3 % (0.0-2.0); EOSINOPHILS # 0.1 10^3/ul (0.0-0.5); EOSINOPHILS % 0.9 % (0.0-7.0); HEMATOCRIT 28.7 % (42.0-52.0); LYMPHOCYTES # 3.2 10^3/ul (0.8-2.9); LYMPHOCYTES % 33.1 % (15.0-51.0); MEAN CORPUSCULAR HEMOGLOBIN 33.7 pg (29.0-33.0); MEAN CORPUSCULAR HGB CONC 34.8 g/dl (32.0-37.0); MEAN CORPUSCULAR VOLUME 96.6 fl (82.0-101.0); MEAN PLATELET VOLUME 9.3 fl (7.4-10.4); MONOCYTE # 0.8 10^3/ul (0.3-0.9); MONOCYTES % 8.5 % (0.0-11.0); NEUTROPHIL # 5.2 10^3/ul (1.6-7.5); NEUTROPHILS % 52.9 % (39.0-77.0); PLATELET COUNT 395 10^3/UL (140-415); RED BLOOD COUNT 2.97 10^6/ul (4.70-6.10); RED CELL DISTRIBUTION WIDTH 16.1 % (11.5-14.5)
[2018-06-26 06:25] LABS: WHITE BLOOD COUNT 9.8 10^3/ul (4.8-10.8)
[2018-06-26 06:36] LABS: MAGNESIUM 1.8 mg/dl (1.7-2.5)
[2018-06-26 06:36] LABS: PHOSPHORUS 4.1 mg/dl (2.5-4.9)
[2018-06-26 06:49] LABS: ANION GAP 8 (5-13); BLOOD UREA NITROGEN 18 mg/dl (7-20); CALCIUM 8.6 mg/dl (8.4-10.2); CARBON DIOXIDE 24 mmol/L (21-31); CHLORIDE 102 mmol/L (97-110); CREATININE 0.56 mg/dl (0.61-1.24); Estimated GFR > 60 mL/min (>60); GLUCOSE 219 mg/dl (70-220); POTASSIUM 3.9 mmol/L (3.5-5.1); SODIUM 134 mmol/L (135-144)
[2018-06-26] MEDS: MULTIVITAMINS THERAPEUTIC TAB PO (08:47)
[2018-06-26] MEDS: FOLIC ACID 1 MG TAB PO (08:47)
[2018-06-26] MEDS: TRIMETHOPRIM/SULFAMETHOX (DS) TAB PO (08:47)
[2018-06-26] MEDS: FLUCONAZOLE 100 MG TAB PO (08:47)
[2018-06-26] MEDS: INSULIN DETEMIR [LEVEMIR] (100 UNITS/ML) SYG SC (08:49)
[2018-06-26] MEDS: INSULIN ASPART [NOVOLOG] 3 ML PEN SC ×6 (08:50→17:09)
[2018-06-26] MEDS: THIAMINE 100 MG TAB PO (08:55)
[2018-06-26] MEDS: CEFTRIAXONE 1 GM/50 ML (PMX) 50 ML IVPB (16:55)
== END 2018-06-26 18:10 | disposition home or self-care (01) | DRG 871 ==
LOC: 6WM 06-14 15:01 → PP2 06-24 16:51 → E/R 22:30 → ICU 06-12 04:59
DX: A40.3 Sepsis due to Streptococcus pneumoniae (principal); J96.01 Acute respiratory failure with hypoxia; R65.20 Severe sepsis without septic shock; J13 Pneumonia due to Streptococcus pneumoniae; E44.0 Moderate protein-calorie malnutrition; Z68.1 Body mass index [BMI] 19.9 or less, adult; R64 Cachexia; F10.10 Alcohol abuse, uncomplicated; D89.9 Disorder involving the immune mechanism, unspecified; E11.65 Type 2 diabetes mellitus with hyperglycemia; K70.9 Alcoholic liver disease, unspecified; D64.89 Other specified anemias; L80 Vitiligo; E87.6 Hypokalemia; R62.7 Adult failure to thrive; E83.42 Hypomagnesemia; Z79.4 Long term (current) use of insulin; Z91.14 Patient's other noncompliance with medication regimen
CPT/HCPCS: 36415; 36600; 71045; 71275; 76705; 80048; 80053; 80307; 81001; 82105; 82803; 82947; 82962; 83036; 83605; 83615; 83690; 83735; 84100; 85025; 86703; 87015; 87040; 87070; 87081; 87086; 87281; 90686; 93005; 93306; 96361; 96372; 96374; 96375; 97110; 97116; 97161; 97530; 99291-25

== ENCOUNTER 2018-09-02 15:43 | Inpatient (IN) | payer MEDICAID ==
[2018-09-02 16:25] LABS: HEMATOCRIT 38.2 % (42.0-52.0); HEMOGLOBIN 13.7 g/dl (14.0-18.0); MEAN CORPUSCULAR HEMOGLOBIN 33.4 pg (29.0-33.0); MEAN CORPUSCULAR HGB CONC 35.9 g/dl (32.0-37.0); MEAN CORPUSCULAR VOLUME 93.2 fl (82.0-101.0); MEAN PLATELET VOLUME 9.6 fl (7.4-10.4); PLATELET COUNT 126 10^3/UL (140-415); RED CELL DISTRIBUTION WIDTH 12.4 % (11.5-14.5)
[2018-09-02 16:25] LABS: WHITE BLOOD COUNT 7.4 10^3/ul (4.8-10.8)
[2018-09-02 16:26] LABS: ADD MAN DIFF? YES
[2018-09-02] MEDS: ONDANSETRON 4 MG INJ IV (16:28)
[2018-09-02] MEDS: FAMOTIDINE 20 MG INJ IV (16:29)
[2018-09-02 16:52] LABS: ALANINE AMINOTRANSFERASE 62 IU/L (13-69); ALBUMIN 4.8 g/dl (3.3-4.9); ALBUMIN/GLOBULIN RATIO 1.77; ALKALINE PHOSPHATASE 172 IU/L (42-121); ANION GAP 24 (5-13); ASPARTATE AMINO TRANSFERASE 89 IU/L (15-46); BILIRUBIN,INDIRECT 0.6 mg/dl (0-1.1); BILIRUBIN,TOTAL 0.6 mg/dl (0.2-1.3); BLOOD UREA NITROGEN 6 mg/dl (7-20); CALCIUM 10.1 mg/dl (8.4-10.2); CARBON DIOXIDE 20 mmol/L (21-31); CHLORIDE 91 mmol/L (97-110); CREATININE 0.35 mg/dl (0.61-1.24); Estimated GFR > 60 mL/min (>60); LIPASE 164 U/L (23-300); MAGNESIUM 1.5 mg/dl (1.7-2.5); PHOSPHORUS 4.2 mg/dl (2.5-4.9); POTASSIUM 3.9 mmol/L (3.5-5.1); SODIUM 135 mmol/L (135-144); TOTAL PROTEIN 7.5 g/dl (6.1-8.1)
[2018-09-02 16:57] LABS: GLUCOSE 449 mg/dl (70-220)
[2018-09-02] MEDS ORDERED: SOD CHLORIDE 0.9% 1,000 ML IV ×2 (17:01→18:48)
[2018-09-02] MEDS ORDERED: DEXTROSE 10 %/0.45 % NACL 1,000 ML IV ×2 (17:01→18:48)
[2018-09-02] MEDS ORDERED: D10/0.45% NACL + KCL 30 MEQ 1,000 ML IV (17:01)
[2018-09-02] MEDS ORDERED: NS + KCL 40 MEQ 1,000 ML IV ×2 (17:01→18:48)
[2018-09-02] MEDS ORDERED: D10/0.45% NACL + KCL 40 MEQ 1,000 ML IV (17:01)
[2018-09-02 17:03] LABS: TROPONIN-I < 0.012 ng/ml (0.000-0.120)
[2018-09-02 17:25] LABS: BASOPHIL #M 0.1 10^3/ul (0.0-0.0); BASOPHILS % (M) 2 % (0-2); GIANT THROMBO% (M) 1 % (0-0); LYMPHOCYTES #M 2.8 10^3/ul (0.8-2.9); LYMPHOCYTES % (M) 39 % (15-51); MONOCYTE #M 0.3 10^3/ul (0.3-0.9); MONOCYTES % (M) 5 % (0-11); PLATELET ESTIMATE NORMAL; POLYCHROMASIA 1+ (0-0); REACTIVE LYMPHOCYTES #M 1.1 10^3/ul (0.0-0.0); REACTIVE LYMPHOCYTES% (M) 16 % (0-0); SEGMENTED NEUTROPHILS (M) % 38 % (39-77); SMUDGE%M 6 % (0-0)
[2018-09-02] MEDS ORDERED: DEXTROSE 50% 50 ML SYRINGE IV ×4 (17:30→19:00)
[2018-09-02] MEDS ORDERED: INSULIN REGULAR, HUMAN 100 UNIT in SOD CHLORIDE 0.9% 100 ML IV (17:30)
[2018-09-02 17:31] LABS: MODE ROOM AIR; MetHgb Venous 0.3 %; Sample Type Blood venous; Site VENOUS LINE; Venous COHb 0.5 %; Venous Fraction OxyHgb 72.1 %; Venous Oxygen Sat 72.7 mmHG (55.0-75.0); Venous Total Hemglobin 15.1 g/dl
[2018-09-02] MEDS: LACTATED RINGER'S 500 ML IV (17:32)
[2018-09-02 17:52] LABS: ADD UMIC NO; UR ASCORBIC ACID NEGATIVE (NEGATIVE); UR BILIRUBIN (Dip) NEGATIVE (NEGATIVE); UR BLOOD (Dip) NEGATIVE (NEGATIVE); UR CLARITY CLEAR (CLEAR); UR COLOR COLORLESS (YELLOW); UR GLUCOSE (Dip) 3+ mg/dL (NEGATIVE); UR KETONES (Dip) TRACE mg/dL (NEGATIVE); UR LEUKOCYTE ESTERASE (Dip) NEGATIVE Leu/ul (NEGATIVE); UR NITRITE (Dip) NEGATIVE (NEGATIVE); UR SPECIFIC GRAVITY (Dip) 1.007 (1.003-1.030); UR TOTAL PROTEIN (Dip) NEGATIVE (NEGATIVE); UR UROBILINOGEN (Dip) NEGATIVE (NEGATIVE)
[2018-09-02 17:57] LABS: HEMOGLOBIN A1C 10.3 % (0-5.9)
[2018-09-02] MEDS: MAGNESIUM SULFATE 1 GM/D5W 100 ML IVPB (17:58)
[2018-09-02 18:41] LABS: MODE ROOM AIR; MetHgb Venous 0.6 %; Sample Type Blood venous; Site VENOUS LINE; Venous COHb 0.3 %; Venous Fraction OxyHgb 33.5 %; Venous Oxygen Sat 33.8 mmHG (55.0-75.0); Venous Total Hemglobin 14.5 g/dl
[2018-09-02] MEDS: ACCU-CHEK XX ×6 (18:45→23:18)
[2018-09-02] MEDS ORDERED: NS + KCL 30 MEQ 1,000 ML IV (18:48)
[2018-09-02] MEDS: NS + KCL 30 MEQ 1,000 ML IV (18:51)
[2018-09-02] MEDS ORDERED: ZOLPIDEM 5 MG TAB PO (19:00)
[2018-09-02] MEDS ORDERED: morphine 2 MG INJ IV (19:00)
[2018-09-02] MEDS ORDERED: HYDROCODONE/APAP (5/325) TAB PO (19:00)
[2018-09-02] MEDS: INSULIN REGULAR, HUMAN 100 UNIT in SOD CHLORIDE 0.9% 100 ML IV (19:15)
[2018-09-02 19:18] LABS: ANION GAP 17 (5-13); BLOOD UREA NITROGEN 5 mg/dl (7-20); CALCIUM 9.9 mg/dl (8.4-10.2); CARBON DIOXIDE 28 mmol/L (21-31); CHLORIDE 93 mmol/L (97-110); CREATININE 0.31 mg/dl (0.61-1.24); Estimated GFR > 60 mL/min (>60); GLUCOSE 328 mg/dl (70-220); SODIUM 138 mmol/L (135-144)
[2018-09-02] MEDS: LACTULOSE 30ML CUP PO (20:14)
[2018-09-02 20:50] LABS: MODE ROOM AIR; MetHgb Venous 1.7 %; Sample Type Blood venous; Site VENOUS LINE; Venous COHb 0.1 %; Venous Fraction OxyHgb 22.9 %; Venous Oxygen Sat 23.3 mmHG (55.0-75.0); Venous Total Hemglobin 14.8 g/dl
[2018-09-02 21:00] LABS: ANION GAP 16 (5-13); BLOOD UREA NITROGEN 4 mg/dl (7-20); CALCIUM 9.7 mg/dl (8.4-10.2); CARBON DIOXIDE 29 mmol/L (21-31); CHLORIDE 96 mmol/L (97-110); CREATININE 0.31 mg/dl (0.61-1.24); Estimated GFR > 60 mL/min (>60); GLUCOSE 238 mg/dl (70-220); MAGNESIUM 1.6 mg/dl (1.7-2.5); PHOSPHORUS 3.3 mg/dl (2.5-4.9); POTASSIUM 3.6 mmol/L (3.5-5.1); SODIUM 141 mmol/L (135-144)
[2018-09-02] MEDS: D10/0.45% NACL + KCL 30 MEQ 1,000 ML IV (21:00)
[2018-09-02 22:35] LABS: MODE ROOM AIR; MetHgb Venous 0.3 %; Sample Type Blood venous; Site VENOUS LINE; Venous COHb 0.5 %; Venous Fraction OxyHgb 68.1 %; Venous Oxygen Sat 68.6 mmHG (55.0-75.0); Venous Total Hemglobin 14.5 g/dl
[2018-09-03] MEDS: ACCU-CHEK XX ×6 (00:19→05:22)
[2018-09-03 01:15] LABS: ANION GAP 13 (5-13); BLOOD UREA NITROGEN 5 mg/dl (7-20); CALCIUM 9.2 mg/dl (8.4-10.2); CARBON DIOXIDE 27 mmol/L (21-31); CHLORIDE 98 mmol/L (97-110); CREATININE 0.31 mg/dl (0.61-1.24); Estimated GFR > 60 mL/min (>60); GLUCOSE 111 mg/dl (70-220); MAGNESIUM 1.2 mg/dl (1.7-2.5); POTASSIUM 3.3 mmol/L (3.5-5.1); SODIUM 138 mmol/L (135-144)
[2018-09-03] MEDS: D10/0.45% NACL + KCL 30 MEQ 1,000 ML IV (01:35)
[2018-09-03] MEDS: D10/0.45% NACL + KCL 40 MEQ 1,000 ML IV (02:37)
[2018-09-03 02:56] LABS: MODE ROOM AIR; MetHgb Venous 0.2 %; Sample Type Blood venous; Site VENOUS LINE; Venous COHb 0.3 %; Venous Fraction OxyHgb 94.4 %; Venous Oxygen Sat 94.9 mmHG (55.0-75.0); Venous Total Hemglobin 13.6 g/dl
[2018-09-03] MEDS ORDERED: GLUCAGON 1 MG INJ IM (04:30)
[2018-09-03] MEDS ORDERED: DEXTROSE 50% 50 ML SYRINGE IV ×2 (04:30)
[2018-09-03] MEDS ORDERED: GLUCOSE GEL 15 GRAM TUBE BUCCAL (04:30)
[2018-09-03] MEDS ORDERED: GLUCOSE GEL 15 GRAM TUBE PO ×2 (04:30)
[2018-09-03] MEDS: INSULIN GLARGINE [LANTus] (100 UNITS/ML) SYG SC ×3 (04:57→21:09)
[2018-09-03] MEDS: PANTOPRAZOLE 40 MG INJ IV (05:22)
[2018-09-03 05:47] LABS: ADD MAN DIFF? NO
[2018-09-03 05:51] LABS: ADD UMIC NO; UR ASCORBIC ACID NEGATIVE (NEGATIVE); UR BILIRUBIN (Dip) NEGATIVE (NEGATIVE); UR BLOOD (Dip) NEGATIVE (NEGATIVE); UR CLARITY CLEAR (CLEAR); UR COLOR YELLOW (YELLOW); UR GLUCOSE (Dip) 3+ mg/dL (NEGATIVE); UR KETONES (Dip) 1+ mg/dL (NEGATIVE); UR LEUKOCYTE ESTERASE (Dip) NEGATIVE Leu/ul (NEGATIVE); UR NITRITE (Dip) NEGATIVE (NEGATIVE); UR SPECIFIC GRAVITY (Dip) 1.014 (1.003-1.030); UR TOTAL PROTEIN (Dip) NEGATIVE (NEGATIVE); UR UROBILINOGEN (Dip) NEGATIVE (NEGATIVE)
[2018-09-03 05:58] LABS: BASOPHIL # 0.1 10^3/ul (0.0-0.1); BASOPHILS % 0.9 % (0.0-2.0); EOSINOPHILS # 0.2 10^3/ul (0.0-0.5); EOSINOPHILS % 2.5 % (0.0-7.0); HEMATOCRIT 36.7 % (42.0-52.0); HEMOGLOBIN 13.2 g/dl (14.0-18.0); LYMPHOCYTES # 2.7 10^3/ul (0.8-2.9); LYMPHOCYTES % 40.9 % (15.0-51.0); MEAN CORPUSCULAR HEMOGLOBIN 33.5 pg (29.0-33.0); MEAN CORPUSCULAR VOLUME 93.1 fl (82.0-101.0); MEAN PLATELET VOLUME 9.7 fl (7.4-10.4); MONOCYTE # 0.5 10^3/ul (0.3-0.9); MONOCYTES % 6.7 % (0.0-11.0); NEUTROPHIL # 3.3 10^3/ul (1.6-7.5); NEUTROPHILS % 48.7 % (39.0-77.0); PLATELET COUNT 127 10^3/UL (140-415); RED BLOOD COUNT 3.94 10^6/ul (4.70-6.10); RED CELL DISTRIBUTION WIDTH 12.3 % (11.5-14.5)
[2018-09-03 05:58] LABS: WHITE BLOOD COUNT 6.7 10^3/ul (4.8-10.8)
[2018-09-03 06:15] LABS: MAGNESIUM 1.2 mg/dl (1.7-2.5)
[2018-09-03 06:30] LABS: ALANINE AMINOTRANSFERASE 60 IU/L (13-69); ALBUMIN 3.8 g/dl (3.3-4.9); ALBUMIN/GLOBULIN RATIO 1.46; ALKALINE PHOSPHATASE 107 IU/L (42-121); ANION GAP 9 (5-13); ASPARTATE AMINO TRANSFERASE 93 IU/L (15-46); BILIRUBIN,INDIRECT 0.8 mg/dl (0-1.1); BILIRUBIN,TOTAL 0.8 mg/dl (0.2-1.3); BLOOD UREA NITROGEN 6 mg/dl (7-20); CALCIUM 9.2 mg/dl (8.4-10.2); CARBON DIOXIDE 29 mmol/L (21-31); CHLORIDE 100 mmol/L (97-110); Estimated GFR > 60 mL/min (>60); GLUCOSE 158 mg/dl (70-220); POTASSIUM 3.8 mmol/L (3.5-5.1); SODIUM 138 mmol/L (135-144); TOTAL PROTEIN 6.4 g/dl (6.1-8.1)
[2018-09-03] MEDS: SOD CHLORIDE 0.9% 1,000 ML IV (07:09)
[2018-09-03] MEDS: INSULIN ASPART [NOVOLOG] 3 ML PEN SC ×4 (07:50→21:07)
[2018-09-03] MEDS ORDERED: INSULIN GLARGINE [LANTus] (100 UNITS/ML) SYG SC (08:00)
[2018-09-03] MEDS: ONDANSETRON 4 MG INJ IV (08:30)
[2018-09-03 10:51] LABS: ANION GAP 11 (5-13); BLOOD UREA NITROGEN 9 mg/dl (7-20); CALCIUM 9.2 mg/dl (8.4-10.2); CARBON DIOXIDE 28 mmol/L (21-31); CHLORIDE 95 mmol/L (97-110); CREATININE 0.35 mg/dl (0.61-1.24); Estimated GFR > 60 mL/min (>60); GLUCOSE 237 mg/dl (70-220); MAGNESIUM 1.2 mg/dl (1.7-2.5); PHOSPHORUS 3.5 mg/dl (2.5-4.9); POTASSIUM 3.8 mmol/L (3.5-5.1); SODIUM 134 mmol/L (135-144)
[2018-09-03] MEDS ORDERED: morphine LIQ (10 MG/5 ML) CUP PO (12:00)
[2018-09-03 13:50] LABS: ANION GAP 14 (5-13); BLOOD UREA NITROGEN 10 mg/dl (7-20); CALCIUM 9.4 mg/dl (8.4-10.2); CARBON DIOXIDE 25 mmol/L (21-31); CHLORIDE 95 mmol/L (97-110); CREATININE 0.39 mg/dl (0.61-1.24); Estimated GFR > 60 mL/min (>60); GLUCOSE 323 mg/dl (70-220); MAGNESIUM 1.3 mg/dl (1.7-2.5); PHOSPHORUS 3.8 mg/dl (2.5-4.9); POTASSIUM 4.4 mmol/L (3.5-5.1); SODIUM 134 mmol/L (135-144)
[2018-09-03] MEDS: MAGNESIUM SULFATE 4 GM/100 ML 100 ML IVPB (14:45)
[2018-09-03 17:50] LABS: ANION GAP 13 (5-13); BLOOD UREA NITROGEN 12 mg/dl (7-20); CALCIUM 9.2 mg/dl (8.4-10.2); CARBON DIOXIDE 28 mmol/L (21-31); CHLORIDE 91 mmol/L (97-110); CREATININE 0.44 mg/dl (0.61-1.24); Estimated GFR > 60 mL/min (>60); GLUCOSE 302 mg/dl (70-220); MAGNESIUM 2.1 mg/dl (1.7-2.5); PHOSPHORUS 3.5 mg/dl (2.5-4.9); POTASSIUM 3.6 mmol/L (3.5-5.1); SODIUM 132 mmol/L (135-144)
[2018-09-03 21:38] LABS: ANION GAP 10 (5-13); BLOOD UREA NITROGEN 11 mg/dl (7-20); CALCIUM 9.3 mg/dl (8.4-10.2); CARBON DIOXIDE 29 mmol/L (21-31); CHLORIDE 93 mmol/L (97-110); CREATININE 0.55 mg/dl (0.61-1.24); Estimated GFR > 60 mL/min (>60); GLUCOSE 148 mg/dl (70-220); MAGNESIUM 2.3 mg/dl (1.7-2.5); PHOSPHORUS 3.3 mg/dl (2.5-4.9); POTASSIUM 3.5 mmol/L (3.5-5.1); SODIUM 132 mmol/L (135-144)
[2018-09-04] MEDS: ACCU-CHEK XX (02:00)
[2018-09-04 05:14] LABS: ADD MAN DIFF? NO
[2018-09-04 05:20] LABS: BASOPHILS % 0.8 % (0.0-2.0); EOSINOPHILS # 0.2 10^3/ul (0.0-0.5); EOSINOPHILS % 3.1 % (0.0-7.0); HEMATOCRIT 37.7 % (42.0-52.0); HEMOGLOBIN 13.4 g/dl (14.0-18.0); LYMPHOCYTES # 2.2 10^3/ul (0.8-2.9); LYMPHOCYTES % 45.3 % (15.0-51.0); MEAN CORPUSCULAR HEMOGLOBIN 33.3 pg (29.0-33.0); MEAN CORPUSCULAR HGB CONC 35.5 g/dl (32.0-37.0); MEAN CORPUSCULAR VOLUME 93.5 fl (82.0-101.0); MEAN PLATELET VOLUME 9.7 fl (7.4-10.4); MONOCYTE # 0.5 10^3/ul (0.3-0.9); MONOCYTES % 9.4 % (0.0-11.0); PLATELET COUNT 123 10^3/UL (140-415); RED BLOOD COUNT 4.03 10^6/ul (4.70-6.10); RED CELL DISTRIBUTION WIDTH 12.2 % (11.5-14.5)
[2018-09-04 05:20] LABS: WHITE BLOOD COUNT 4.9 10^3/ul (4.8-10.8)
[2018-09-04 05:50] LABS: ALANINE AMINOTRANSFERASE 51 IU/L (13-69); ALBUMIN 3.8 g/dl (3.3-4.9); ALBUMIN/GLOBULIN RATIO 1.46; ALKALINE PHOSPHATASE 110 IU/L (42-121); ANION GAP 10 (5-13); ASPARTATE AMINO TRANSFERASE 84 IU/L (15-46); BLOOD UREA NITROGEN 10 mg/dl (7-20); CALCIUM 9.6 mg/dl (8.4-10.2); CARBON DIOXIDE 29 mmol/L (21-31); CHLORIDE 100 mmol/L (97-110); CREATININE 0.36 mg/dl (0.61-1.24); Estimated GFR > 60 mL/min (>60); GLUCOSE 121 mg/dl (70-220); POTASSIUM 3.4 mmol/L (3.5-5.1); SODIUM 139 mmol/L (135-144); TOTAL PROTEIN 6.4 g/dl (6.1-8.1)
[2018-09-04 06:08] LABS: PHOSPHORUS 4.3 mg/dl (2.5-4.9)
[2018-09-04 06:08] LABS: MAGNESIUM 1.9 mg/dl (1.7-2.5)
[2018-09-04] MEDS: ACETAMINOPHEN 650MG/20.3ML CUP PO (07:55)
[2018-09-04] MEDS: FAMOTIDINE 20 MG TAB PO (09:15)
[2018-09-04] MEDS: INSULIN ASPART [NOVOLOG] 3 ML PEN SC ×4 (09:17→13:06)
[2018-09-04] MEDS: INSULIN GLARGINE [LANTus] (100 UNITS/ML) SYG SC (09:19)
== END 2018-09-04 17:54 | disposition home or self-care (01) | DRG 638 ==
LOC: MS1 09-03 06:32 → E/R 15:43 → ICU 19:15
PROVIDERS: Internal Medicine
PROC: 4A133R1 Monitoring of Arterial Saturation, Peripheral, Percutaneous Approach (ICD-10-PCS; principal; 2018-09-02)
DX: E11.10 Type 2 diabetes mellitus with ketoacidosis without coma (principal); E44.0 Moderate protein-calorie malnutrition; Z68.1 Body mass index [BMI] 19.9 or less, adult; F10.188 Alcohol abuse with other alcohol-induced disorder; E78.5 Hyperlipidemia, unspecified; I10 Essential (primary) hypertension; F10.129 Alcohol abuse with intoxication, unspecified; D63.8 Anemia in other chronic diseases classified elsewhere; K70.9 Alcoholic liver disease, unspecified; L80 Vitiligo; D69.6 Thrombocytopenia, unspecified; Z79.4 Long term (current) use of insulin; Z91.14 Patient's other noncompliance with medication regimen
CPT/HCPCS: 36415; 71045; 76705; 80048; 80053; 81003; 82803; 82962; 83036; 83690; 83735; 84100; 84443; 84484; 85025; 93005; 96374; 96375; 99285-25

== ENCOUNTER 2018-09-26 14:35 | Emergency (ER) | payer MEDICAID ==
[2018-09-26 16:34] LABS: ADD MAN DIFF? NO
[2018-09-26] MEDS: morphine 4 MG/ML VIAL IV (16:35)
[2018-09-26] MEDS: ONDANSETRON 4 MG INJ IV (16:35)
[2018-09-26 16:37] LABS: BASOPHIL # 0.1 10^3/ul (0.0-0.1); BASOPHILS % 0.9 % (0.0-2.0); EOSINOPHILS # 0.3 10^3/ul (0.0-0.5); EOSINOPHILS % 3.7 % (0.0-7.0); HEMATOCRIT 38.3 % (42.0-52.0); HEMOGLOBIN 13.4 g/dl (14.0-18.0); LYMPHOCYTES # 3.3 10^3/ul (0.8-2.9); MEAN CORPUSCULAR HEMOGLOBIN 32.5 pg (29.0-33.0); MEAN PLATELET VOLUME 9.6 fl (7.4-10.4); MONOCYTE # 0.6 10^3/ul (0.3-0.9); MONOCYTES % 9.3 % (0.0-11.0); NEUTROPHIL # 2.5 10^3/ul (1.6-7.5); NEUTROPHILS % 36.8 % (39.0-77.0); PLATELET COUNT 201 10^3/UL (140-415); RED BLOOD COUNT 4.12 10^6/ul (4.70-6.10); RED CELL DISTRIBUTION WIDTH 12.1 % (11.5-14.5)
[2018-09-26 16:37] LABS: WHITE BLOOD COUNT 6.8 10^3/ul (4.8-10.8)
[2018-09-26 16:44] LABS: ADD UMIC NO; UR ASCORBIC ACID NEGATIVE (NEGATIVE); UR BILIRUBIN (Dip) NEGATIVE (NEGATIVE); UR BLOOD (Dip) NEGATIVE (NEGATIVE); UR CLARITY CLEAR (CLEAR); UR COLOR YELLOW (YELLOW); UR GLUCOSE (Dip) 3+ mg/dL (NEGATIVE); UR KETONES (Dip) NEGATIVE (NEGATIVE); UR LEUKOCYTE ESTERASE (Dip) NEGATIVE Leu/ul (NEGATIVE); UR NITRITE (Dip) NEGATIVE (NEGATIVE); UR SPECIFIC GRAVITY (Dip) 1.033 (1.003-1.030); UR TOTAL PROTEIN (Dip) NEGATIVE (NEGATIVE); UR UROBILINOGEN (Dip) 1+ mg/dL (NEGATIVE)
[2018-09-26 16:55] LABS: ALANINE AMINOTRANSFERASE 29 IU/L (13-69); ALBUMIN 4.7 g/dl (3.3-4.9); ALBUMIN/GLOBULIN RATIO 1.51; ALKALINE PHOSPHATASE 115 IU/L (42-121); ANION GAP 12 (5-13); ASPARTATE AMINO TRANSFERASE 37 IU/L (15-46); BILIRUBIN,INDIRECT 1.1 mg/dl (0-1.1); BILIRUBIN,TOTAL 1.1 mg/dl (0.2-1.3); BLOOD UREA NITROGEN 10 mg/dl (7-20); CALCIUM 10.3 mg/dl (8.4-10.2); CARBON DIOXIDE 28 mmol/L (21-31); CHLORIDE 102 mmol/L (97-110); CREATININE 0.47 mg/dl (0.61-1.24); Estimated GFR > 60 mL/min (>60); GLUCOSE 118 mg/dl (70-220); SODIUM 142 mmol/L (135-144); TOTAL PROTEIN 7.8 g/dl (6.1-8.1)
[2018-09-26 16:56] LABS: POTASSIUM 3.6 mmol/L (3.5-5.1)
== END 2018-09-26 19:59 | disposition home or self-care (01) ==
LOC: E/R 14:35
DX: R10.31 Right lower quadrant pain (principal); I10 Essential (primary) hypertension; E11.9 Type 2 diabetes mellitus without complications; Z79.4 Long term (current) use of insulin
CPT/HCPCS: 36415; 74176; 80053; 81003; 82962; 85025; 96374; 96375; 99285-25

== ENCOUNTER 2018-10-04 21:11 | Emergency (ER) | payer MEDICAID ==
[2018-10-04] MEDS: ONDANSETRON 4 MG INJ IV (22:26)
[2018-10-04] MEDS: SOD CHLORIDE 0.9% 1,000 ML IV (22:26)
[2018-10-04] MEDS: morphine 4 MG/ML VIAL IV (22:26)
[2018-10-04 22:38] LABS: ADD MAN DIFF? NO
[2018-10-04 22:44] LABS: ADD UMIC NO; UR ASCORBIC ACID NEGATIVE (NEGATIVE); UR BILIRUBIN (Dip) NEGATIVE (NEGATIVE); UR BLOOD (Dip) NEGATIVE (NEGATIVE); UR CLARITY CLEAR (CLEAR); UR COLOR YELLOW (YELLOW); UR GLUCOSE (Dip) 3+ mg/dL (NEGATIVE); UR KETONES (Dip) 1+ mg/dL (NEGATIVE); UR LEUKOCYTE ESTERASE (Dip) NEGATIVE Leu/ul (NEGATIVE); UR NITRITE (Dip) NEGATIVE (NEGATIVE); UR SPECIFIC GRAVITY (Dip) 1.018 (1.003-1.030); UR TOTAL PROTEIN (Dip) NEGATIVE (NEGATIVE); UR UROBILINOGEN (Dip) NEGATIVE (NEGATIVE)
[2018-10-04 23:01] LABS: BASOPHIL # 0.1 10^3/ul (0.0-0.1); BASOPHILS % 0.8 % (0.0-2.0); EOSINOPHILS # 0.2 10^3/ul (0.0-0.5); EOSINOPHILS % 2.6 % (0.0-7.0); HEMATOCRIT 39.1 % (42.0-52.0); HEMOGLOBIN 14.1 g/dl (14.0-18.0); LYMPHOCYTES # 3.7 10^3/ul (0.8-2.9); LYMPHOCYTES % 47.7 % (15.0-51.0); MEAN CORPUSCULAR HEMOGLOBIN 32.5 pg (29.0-33.0); MEAN CORPUSCULAR HGB CONC 36.1 g/dl (32.0-37.0); MEAN CORPUSCULAR VOLUME 90.1 fl (82.0-101.0); MEAN PLATELET VOLUME 9.9 fl (7.4-10.4); MONOCYTE # 0.5 10^3/ul (0.3-0.9); MONOCYTES % 5.9 % (0.0-11.0); NEUTROPHIL # 3.3 10^3/ul (1.6-7.5); NEUTROPHILS % 42.7 % (39.0-77.0); PLATELET COUNT 212 10^3/UL (140-415); RED BLOOD COUNT 4.34 10^6/ul (4.70-6.10); RED CELL DISTRIBUTION WIDTH 11.9 % (11.5-14.5)
[2018-10-04 23:01] LABS: WHITE BLOOD COUNT 7.7 10^3/ul (4.8-10.8)
[2018-10-04 23:03] LABS: ALANINE AMINOTRANSFERASE 22 IU/L (13-69); ALBUMIN 4.8 g/dl (3.3-4.9); ALKALINE PHOSPHATASE 106 IU/L (42-121); ANION GAP 18 (5-13); ASPARTATE AMINO TRANSFERASE 28 IU/L (15-46); BILIRUBIN,INDIRECT 0.9 mg/dl (0-1.1); BILIRUBIN,TOTAL 0.9 mg/dl (0.2-1.3); BLOOD UREA NITROGEN 6 mg/dl (7-20); CALCIUM 9.7 mg/dl (8.4-10.2); CARBON DIOXIDE 25 mmol/L (21-31); CHLORIDE 91 mmol/L (97-110); CREATININE 0.42 mg/dl (0.61-1.24); Estimated GFR > 60 mL/min (>60); GLUCOSE 338 mg/dl (70-220); LIPASE 144 U/L (23-300); POTASSIUM 3.9 mmol/L (3.5-5.1); SODIUM 134 mmol/L (135-144); TOTAL PROTEIN 7.8 g/dl (6.1-8.1)
== END 2018-10-05 01:50 | disposition home or self-care (01) ==
LOC: E/R 10-05 01:50
DX: R10.9 Unspecified abdominal pain (principal); R11.0 Nausea; I10 Essential (primary) hypertension; Z79.4 Long term (current) use of insulin
CPT/HCPCS: 36415; 74176; 80053; 81003; 83690; 85025; 96374; 96375; 99285-25

== ENCOUNTER 2018-10-16 20:34 | Emergency (ER) | payer MEDICAID ==
[2018-10-16 21:51] LABS: HEMATOCRIT 41.3 % (42.0-52.0); MEAN CORPUSCULAR HEMOGLOBIN 32.2 pg (29.0-33.0); MEAN CORPUSCULAR HGB CONC 36.3 g/dl (32.0-37.0); MEAN CORPUSCULAR VOLUME 88.6 fl (82.0-101.0); MEAN PLATELET VOLUME 8.5 fl (7.4-10.4); PLATELET COUNT 149 10^3/UL (140-415); RED BLOOD COUNT 4.66 10^6/ul (4.70-6.10); RED CELL DISTRIBUTION WIDTH 12.3 % (11.5-14.5)
[2018-10-16 21:51] LABS: WHITE BLOOD COUNT 8.9 10^3/ul (4.8-10.8)
[2018-10-16 21:59] LABS: ADD UMIC NO; UR ASCORBIC ACID NEGATIVE (NEGATIVE); UR BILIRUBIN (Dip) NEGATIVE (NEGATIVE); UR BLOOD (Dip) NEGATIVE (NEGATIVE); UR CLARITY CLEAR (CLEAR); UR COLOR YELLOW (YELLOW); UR GLUCOSE (Dip) 3+ mg/dL (NEGATIVE); UR KETONES (Dip) 1+ mg/dL (NEGATIVE); UR LEUKOCYTE ESTERASE (Dip) NEGATIVE Leu/ul (NEGATIVE); UR NITRITE (Dip) NEGATIVE (NEGATIVE); UR SPECIFIC GRAVITY (Dip) 1.016 (1.003-1.030); UR TOTAL PROTEIN (Dip) NEGATIVE (NEGATIVE); UR UROBILINOGEN (Dip) 1+ mg/dL (NEGATIVE)
[2018-10-16 22:09] LABS: ALANINE AMINOTRANSFERASE 54 IU/L (13-69); ALBUMIN 5.2 g/dl (3.3-4.9); ALBUMIN/GLOBULIN RATIO 1.36; ALKALINE PHOSPHATASE 123 IU/L (42-121); ANION GAP 20 (5-13); ASPARTATE AMINO TRANSFERASE 102 IU/L (15-46); BILIRUBIN,INDIRECT 0.8 mg/dl (0-1.1); BILIRUBIN,TOTAL 0.8 mg/dl (0.2-1.3); BLOOD UREA NITROGEN 4 mg/dl (7-20); CALCIUM 10.8 mg/dl (8.4-10.2); CARBON DIOXIDE 29 mmol/L (21-31); CHLORIDE 88 mmol/L (97-110); CREATININE 0.55 mg/dl (0.61-1.24); Estimated GFR > 60 mL/min (>60); GLUCOSE 90 mg/dl (70-220); LIPASE 201 U/L (23-300); POTASSIUM 3.2 mmol/L (3.5-5.1); SODIUM 137 mmol/L (135-144)
[2018-10-16] MEDS: ONDANSETRON 4 MG INJ IV (22:12)
[2018-10-16] MEDS: morphine 4 MG/ML VIAL IV (22:12)
[2018-10-16 22:20] LABS: TROPONIN-I < 0.012 ng/ml (0.000-0.120)
[2018-10-16 22:31] LABS: ADD MAN DIFF? YES
[2018-10-16 23:36] LABS: BASOPHIL #M 0.1 10^3/ul (0.0-0.0); BASOPHILS % (M) 2 % (0-2); EOSINOPHILS % (M) 1 % (0-7); LYMPHOCYTES #M 3.4 10^3/ul (0.8-2.9); LYMPHOCYTES % (M) 39 % (15-51); MONOCYTE #M 0.5 10^3/ul (0.3-0.9); MONOCYTES % (M) 6 % (0-11); REACTIVE LYMPHOCYTES% (M) 12 % (0-0); SEGMENTED NEUTROPHILS (M) % 40 % (39-77); SMUDGE%M 1 % (0-0)
== END 2018-10-17 00:20 | disposition home or self-care (01) ==
LOC: E/R 10-17 00:20
DX: K86.1 Other chronic pancreatitis (principal); I10 Essential (primary) hypertension; E11.9 Type 2 diabetes mellitus without complications; Z79.4 Long term (current) use of insulin; Z87.891 Personal history of nicotine dependence
CPT/HCPCS: 36415; 74176; 80053; 81003; 83690; 84484; 85025; 93005; 96374; 96375; 99285-25

== ENCOUNTER 2018-12-11 17:54 | Observation (INO) | payer MEDICAID ==
[2018-12-11] MEDS: LACTATED RINGER'S 1,000 ML IV (18:09)
[2018-12-11 18:34] LABS: ADD MAN DIFF? NO
[2018-12-11 18:36] LABS: BASOPHIL # 0.1 10^3/ul (0.0-0.1); BASOPHILS % 0.8 % (0.0-2.0); EOSINOPHILS # 0.1 10^3/ul (0.0-0.5); EOSINOPHILS % 0.8 % (0.0-7.0); HEMATOCRIT 39.9 % (42.0-52.0); HEMOGLOBIN 14.4 g/dl (14.0-18.0); LYMPHOCYTES # 2.3 10^3/ul (0.8-2.9); LYMPHOCYTES % 38.5 % (15.0-51.0); MEAN CORPUSCULAR HGB CONC 36.1 g/dl (32.0-37.0); MEAN CORPUSCULAR VOLUME 91.3 fl (82.0-101.0); MEAN PLATELET VOLUME 9.5 fl (7.4-10.4); MONOCYTE # 0.7 10^3/ul (0.3-0.9); MONOCYTES % 11.3 % (0.0-11.0); NEUTROPHIL # 2.9 10^3/ul (1.6-7.5); NEUTROPHILS % 48.3 % (39.0-77.0); PLATELET COUNT 164 10^3/UL (140-415); RED BLOOD COUNT 4.37 10^6/ul (4.70-6.10); RED CELL DISTRIBUTION WIDTH 12.9 % (11.5-14.5)
[2018-12-11 18:36] LABS: WHITE BLOOD COUNT 5.9 10^3/ul (4.8-10.8)
[2018-12-11 18:52] LABS: ALANINE AMINOTRANSFERASE 50 IU/L (13-69); ALBUMIN 4.8 g/dl (3.3-4.9); ALKALINE PHOSPHATASE 159 IU/L (42-121); ANION GAP 15 (5-13); ASPARTATE AMINO TRANSFERASE 66 IU/L (15-46); BLOOD UREA NITROGEN 6 mg/dl (7-20); CALCIUM 9.5 mg/dl (8.4-10.2); CARBON DIOXIDE 29 mmol/L (21-31); CHLORIDE 85 mmol/L (97-110); CREATININE 0.46 mg/dl (0.61-1.24); Estimated GFR > 60 mL/min (>60); LIPASE 234 U/L (23-300); POTASSIUM 4.1 mmol/L (3.5-5.1); SODIUM 129 mmol/L (135-144)
[2018-12-11 19:05] LABS: GLUCOSE 608 mg/dl (70-220)
[2018-12-11] MEDS: SOD CHLORIDE 0.9% 1,000 ML IV (19:17)
[2018-12-11] MEDS: morphine 4 MG/ML VIAL IV (19:56)
[2018-12-11] MEDS: ONDANSETRON 4 MG INJ IV (19:56)
[2018-12-11] MEDS ORDERED: ACETAMINOPHEN 325 MG TAB PO (20:00)
[2018-12-11] MEDS ORDERED: ONDANSETRON 4 MG INJ IV (20:00)
[2018-12-11 20:06] LABS: ADD UMIC NO; UR ASCORBIC ACID NEGATIVE (NEGATIVE); UR BILIRUBIN (Dip) NEGATIVE (NEGATIVE); UR BLOOD (Dip) NEGATIVE (NEGATIVE); UR CLARITY CLEAR (CLEAR); UR COLOR STRAW (YELLOW); UR GLUCOSE (Dip) 3+ mg/dL (NEGATIVE); UR KETONES (Dip) 1+ mg/dL (NEGATIVE); UR LEUKOCYTE ESTERASE (Dip) NEGATIVE Leu/ul (NEGATIVE); UR NITRITE (Dip) NEGATIVE (NEGATIVE); UR SPECIFIC GRAVITY (Dip) 1.029 (1.003-1.030); UR TOTAL PROTEIN (Dip) NEGATIVE (NEGATIVE); UR UROBILINOGEN (Dip) NEGATIVE (NEGATIVE)
[2018-12-11] MEDS: INSULIN ASPART [NOVOLOG] 3 ML PEN SC (20:19)
[2018-12-11 20:56] LABS: LACTIC ACID 1.2 mmol/L (0.5-2.0)
[2018-12-12] MEDS ORDERED: ACETAMINOPHEN 325 MG TAB PO (02:00)
[2018-12-12] MEDS ORDERED: ONDANSETRON 4 MG INJ IV (02:00)
[2018-12-12] MEDS ORDERED: HYDROCODONE/APAP (5/325) TAB PO (02:00)
[2018-12-12] MEDS ORDERED: morphine 2 MG INJ IV (02:00)
[2018-12-12] MEDS ORDERED: GLUCAGON 1 MG INJ IM (02:30)
[2018-12-12] MEDS ORDERED: GLUCOSE GEL 15 GRAM TUBE BUCCAL (02:30)
[2018-12-12] MEDS ORDERED: DEXTROSE 50% 50 ML SYRINGE IV ×2 (02:30)
[2018-12-12] MEDS ORDERED: GLUCOSE GEL 15 GRAM TUBE PO ×2 (02:30)
[2018-12-12] MEDS: AMLODIPINE 5 MG TAB PO ×2 (02:31→08:31)
[2018-12-12] MEDS: SOD CHLORIDE 0.9% 1,000 ML IV ×2 (02:34→12:01)
[2018-12-12] MEDS: ACCU-CHEK XX (02:34)
[2018-12-12] MEDS: PANTOPRAZOLE (EC) 40 MG TAB PO (05:49)
[2018-12-12 06:09] LABS: ADD MAN DIFF? NO
[2018-12-12 06:12] LABS: BASOPHILS % 0.8 % (0.0-2.0); EOSINOPHILS # 0.1 10^3/ul (0.0-0.5); EOSINOPHILS % 1.5 % (0.0-7.0); HEMATOCRIT 37.4 % (42.0-52.0); HEMOGLOBIN 13.3 g/dl (14.0-18.0); LYMPHOCYTES # 2.1 10^3/ul (0.8-2.9); LYMPHOCYTES % 38.8 % (15.0-51.0); MEAN CORPUSCULAR HEMOGLOBIN 32.9 pg (29.0-33.0); MEAN CORPUSCULAR HGB CONC 35.6 g/dl (32.0-37.0); MEAN CORPUSCULAR VOLUME 92.6 fl (82.0-101.0); MEAN PLATELET VOLUME 9.9 fl (7.4-10.4); MONOCYTE # 0.5 10^3/ul (0.3-0.9); MONOCYTES % 9.8 % (0.0-11.0); NEUTROPHIL # 2.6 10^3/ul (1.6-7.5); NEUTROPHILS % 48.9 % (39.0-77.0); PLATELET COUNT 144 10^3/UL (140-415); RED BLOOD COUNT 4.04 10^6/ul (4.70-6.10); RED CELL DISTRIBUTION WIDTH 12.9 % (11.5-14.5)
[2018-12-12 06:12] LABS: WHITE BLOOD COUNT 5.3 10^3/ul (4.8-10.8)
[2018-12-12 06:28] LABS: HEMOGLOBIN A1C 9.4 % (0-5.9)
[2018-12-12 06:34] LABS: INR 0.97
[2018-12-12 06:58] LABS: ALANINE AMINOTRANSFERASE 42 IU/L (13-69); ALBUMIN 3.9 g/dl (3.3-4.9); ALKALINE PHOSPHATASE 90 IU/L (42-121); ANION GAP 19 (5-13); ASPARTATE AMINO TRANSFERASE 56 IU/L (15-46); BILIRUBIN,INDIRECT 1.2 mg/dl (0-1.1); BILIRUBIN,TOTAL 1.2 mg/dl (0.2-1.3); BLOOD UREA NITROGEN 5 mg/dl (7-20); CALCIUM 9.1 mg/dl (8.4-10.2); CARBON DIOXIDE 25 mmol/L (21-31); CHLORIDE 93 mmol/L (97-110); CHOLESTEROL 141 mg/dl (100-200); CREATININE 0.34 mg/dl (0.61-1.24); Estimated GFR > 60 mL/min (>60); GLUCOSE 263 mg/dl (70-220); HDL CHOLESTEROL 68 mg/dl (28-71); LDL CHOLESTEROL,CALCULATED 63 mg/dl; POTASSIUM 3.5 mmol/L (3.5-5.1); SODIUM 137 mmol/L (135-144); TOTAL PROTEIN 6.5 g/dl (6.1-8.1); TRIGLYCERIDES 50 mg/dl (0-149)
[2018-12-12] MEDS: INSULIN ASPART [NOVOLOG] 3 ML PEN SC ×4 (08:30→12:02)
[2018-12-12] MEDS ORDERED: INSULIN GLARGINE [LANTus] (100 UNITS/ML) SYG SC (20:00)
[2018-12-12] MEDS ORDERED: TAMSULOSIN (SR) 0.4 MG CAP PO (21:00)
== END 2018-12-12 14:30 | disposition home or self-care (01) ==
LOC: PP2 19:48 → E/R 17:54
DX: E11.65 Type 2 diabetes mellitus with hyperglycemia (principal); K85.20 Alcohol induced acute pancreatitis without necrosis or infection; K70.30 Alcoholic cirrhosis of liver without ascites; F10.10 Alcohol abuse, uncomplicated; I10 Essential (primary) hypertension; R64 Cachexia; N40.0 Benign prostatic hyperplasia without lower urinary tract symptoms; L80 Vitiligo; Z79.4 Long term (current) use of insulin
CPT/HCPCS: 36415; 71045; 74176; 80053; 80061; 81003; 82962; 83036; 83605; 83690; 84443; 85025; 85610; 87086; 93005; 99285-25; G0378